=== PATIENT | male | born 1970 | race American Indian/Alaskan Native ===

== ENCOUNTER 2020-01-04 20:35 | Inpatient (IN) | payer OTHER ==
[2020-01-04] MEDS ORDERED: NORepinephrine/NS 4 MG-250 ML 4 MG/250 ML BAG IV ONE (20:54)
[2020-01-04] MEDS: NORepinephrine/NS 4 MG-250 ML 4 MG/250 ML BAG IV SCH (21:00)
--- NOTE | 2020-01-04 21:36 | XRay Report ---
CHEST 1 VIEW INDICATION / CLINICAL INFORMATION: MAIN: post intubation; FOUND FACE DOWN AT A GAS STATION. COMPARISON: None available. FINDINGS: SUPPORT DEVICES: The endotracheal tube is located 5 cm above the niraj. HEART / MEDIASTINUM: No significant abnormality. LUNGS / PLEURA: No significant pulmonary or pleural abnormality. No pneumothorax. ADDITIONAL FINDINGS: No significant additional findings. IMPRESSION: 1. No acute findings. Signer Name: Dago Gayle MD Signed: 01/04/2020 9:31 PM Workstation Name: [id number]
[2020-01-04 21:42] LABS: Basophils % (Auto) 0.3 % (0.0-1.8); Eosinophils % (Auto) 0.3 % (0.0-4.3); Hematocrit 35.7 % (35.5-45.6); Hemoglobin 11.5 gm/dl (11.8-15.2); Lymphocytes # (Auto) 2.9 K/mm3 (1.2-5.4); Lymphocytes % (Auto) 24.1 % (13.4-35.0); Mean Corpuscular HGB Conc 32 % (32-34); Mean Corpuscular Volume 93 fl (84-94); Monocytes # (Auto) 0.7 K/mm3 (0.0-0.8); Monocytes % (Auto) 5.5 % (0.0-7.3); Platelet Count 130 K/mm3 (140-440); Red Blood Count 3.84 M/mm3 (3.65-5.03); Red Cell Distribution Width 15.2 % (13.2-15.2)
[2020-01-04 21:49] LABS: Bacteria,Urine 4+ /HPF (Negative); Bilirubin,Urine NEG (Negative); Blood,Urine NEG (Negative); Color,Urine Yellow (Yellow); Mucus,Urine 1+ /HPF; Sperm,Urine 3+ /HPF (NP); Urobilinogen,Urine < 2.0 mg/dL (<2.0)
[2020-01-04 21:53] LABS: INR 1.45 (0.87-1.13)
[2020-01-04 21:55] LABS: Benzodiazepines Screen,Urine PRESUMPTIVE NEGATIVE; Cannabinoid Screen,Urine PRESUMPTIVE NEGATIVE; Methadone Screen,Urine PRESUMPTIVE NEGATIVE; Opiate Screen,Urine PRESUMPTIVE NEGATIVE
[2020-01-04 22:03] LABS: ABG Base Excess -13.5 mmol/L (-2.0-3.0); ABG HCO3 14.6 mmol/L (20.0-26.0); ABG Methemoglobin 0.6 % (0.0-1.5); ABG Oxygen Saturation 99.6 % (95.0-99.0); ABG PCO2 41.9 mm Hg
[2020-01-04 22:07] LABS: Alanine Aminotransferase 196 units/L (7-56); Albumin 3.7 g/dL (3.9-5); BUN/Creatinine Ratio 9; Blood Urea Nitrogen 18 mg/dL (9-20); Calcium 7.4 mg/dL (8.4-10.2); Hemolysis Index 17
[2020-01-04 22:09] LABS: ABG PH 7.159 pH Units (7.350-7.450); ABG PO2 404.4 mm Hg (80.0-90.0)
[2020-01-04] MEDS ORDERED: SODIUM BICARB 8.4% 50 MEQ/50 ML SYRINGE IV ONE ×2 (22:12→22:14)
[2020-01-04 22:15] LABS: Amphetamine Screen,Urine PRESUMPTIVE POSITIVE; Cocaine Screen,Urine PRESUMPTIVE POSITIVE
--- NOTE | 2020-01-04 22:27 | Emergency Department Report ---
<LASHAWN MCGOVERN - Last Filed: 01/05/20 06:25> ED General Adult HPI - General Chief complaint: Cardiac Arrest/CPR Stated complaint: CARDIAC ARREST Time Seen by Provider: 01/04/20 21:03 - Related Data Home Medications Medication Instructions Recorded Confirmed Last Taken Unobtainable 01/05/20 01/05/20 Unknown Allergies Allergy/AdvReac Type Severity Reaction Status Date / Time No Known Allergies Allergy Verified 01/04/20 21:59 ED Past Medical Hx - Medications Home Medications: Home Medications Medication Instructions Recorded Confirmed Last Taken Type Unobtainable 01/05/20 01/05/20 Unknown History ED Medical Decision Making - Lab Data Result diagrams: 01/05/20 05:29 01/05/20 05:29 - Medical Decision Making Attempt to transfer patient to neurosurgery but he was declined by [facility], states ct findings and clinical findings are consistent with a moribound patient and that neurosurgery would not operate on patient, all neurosurgery procedures would be futile. ED Disposition Clinical Impression: Subarachnoid hemorrhage, History of cardiac arrest Disposition: OP ADMIT IP TO THIS HOSP Condition: Stable <ROSY JARAMILLO - Last Filed: 01/05/20 21:01> ED General Adult HPI - General Source: EMS Mode of arrival: Stretcher Limitations: Altered Mental Status - History of Present Illness Initial comments: Patient is a 49-year-old gentleman who was found collapsed in a gas station parking lot. Patient was checked by a nurse who was nearby who did not feel a pulse. Paramedics arrived patient was in asystole. Patient was intubated and CPR was initiated. Patient given several rounds of epinephrine. Just before the patient was arrival he did regain spontaneous circulation. No other informa tion is known regarding this patient. ED Review of Systems ROS: Stated complaint: CARDIAC ARREST Other details as noted in HPI Comment: All other systems reviewed and negative ED Past Medical Hx - Past Medical History Additional medical history: unknown - Surgical History Additional Surgical History: unknown - Social History Smoking Status: Unknown if ever smoked ED Physical Exam - General Limitations: Altered Mental Status General appearance: obtunded - Head Head exam: Present: normocephalic. Absent: atraumatic (With 2 large abrasions to the right side of his face) - Eye Eye exam: Present: normal appearance, PERRL - ENT ENT exam: Present: normal orophraynx, mucous membranes moist - Neck Neck exam: Present: normal inspection - Respiratory Respiratory exam: Present: normal lung sounds bilaterally. Absent: respiratory distress, wheezes, rales, rhonchi - Cardiovascular Cardiovascular Exam: Present: regular rate, normal rhythm, tachycardia. Absent: systolic murmur, diastolic murmur, rubs, gallop - GI/Abdominal GI/Abdominal exam: Present: soft, normal bowel sounds. Absent: distended, tenderness, guarding, rebound - Rectal Rectal exam: Present: deferred - Extremities Exam Extremities exam: Present: normal inspection - Back Exam Back exam: Present: normal inspection - Neurological Exam Neurological exam: Present: other (Intubated) - Skin Skin exam: Present: warm, dry, intact, normal color. Absent: rash ED Course Vital Signs 01/04/20 01/04/20 01/04/20 21:30 21:54 23:45 Temperature Pulse Rate 74 138 H Respiratory Rate Blood Pressure 149/73 O2 Sat by Pulse 97 100 97 Oximetry 01/05/20 01/05/20 01/05/20 03:27 03:30 03:45 Temperature Pulse Rate 128 H 128 H 126 H Respiratory 22 22 22 Rate Blood Pressure 145/109 145/109 142/108 O2 Sat by Pulse 99 99 99 Oximetry 01/05/20 01/05/20 01/05/20 03:50 04:00 04:15 Temperature Pulse Rate 127 H 125 H 124 H Respiratory 22 22 Rate Blood Pressure 150/105 142/100 138/95 O2 Sat by Pulse 99 99 99 Oximetry 01/05/20 01/05/20 01/05/20 04:30 04:45 05:00 Temperature Pulse Rate 124 H 125 H 125 H Respiratory 22 22 22 Rate Blood Pressure 130/99 147/104 151/104 O2 Sat by Pulse 99 99 99 Oximetry 01/05/20 01/05/20 01/05/20 05:15 05:30 05:46 Temperature Pulse Rate 122 H 122 H 119 H Respiratory 22 22 17 Rate Blood Pressure 131/100 119/95 97/69 O2 Sat by Pulse 99 99 100 Oximetry 01/05/20 01/05/20 01/05/20 06:00 06:15 06:30 Temperature Pulse Rate 120 H 115 H 113 H Respiratory 22 22 22 Rate Blood Pressure 148/109 107/78 104/72 O2 Sat by Pulse 99 99 99 Oximetry 01/05/20 01/05/20 01/05/20 06:45 07:00 07:27 Temperature Pulse Rate 113 H 112 H 105 H Respiratory 22 22 22 Rate Blood Pressure 103/65 94/60 104/72 O2 Sat by Pulse 99 99 100 Oximetry 01/05/20 01/05/20 01/05/20 07:30 07:45 08:00 Temperature Pulse Rate 104 H 103 H 102 H Respiratory 22 22 22 Rate Blood Pressure 135/99 151/107 148/103 O2 Sat by Pulse 100 100 100 Oximetry 01/05/20 01/05/20 01/05/20 08:15 08:30 08:45 Temperature Pulse Rate 101 H 101 H 102 H Respiratory 22 22 22 Rate Blood Pressure 155/113 153/103 157/116 O2 Sat by Pulse 100 100 100 Oximetry 01/05/20 01/05/20 01/05/20 08:58 09:00 09:15 Temperature Pulse Rate 101 H 102 H 102 H Respiratory 18 18 Rate Blood Pressure 158/116 158/116 152/118 O2 Sat by Pulse 99 100 99 Oximetry 01/05/20 01/05/20 01/05/20 09:30 09:45 10:00 Temperature Pulse Rate 103 H 105 H 105 H Respiratory 18 18 18 Rate Blood Pressure 161/118 175/122 172/126 O2 Sat by Pulse 99 99 98 Oximetry 01/05/20 01/05/20 01/05/20 10:15 10:30 10:46 Temperature 98.4 F Pulse Rate 108 H 108 H 104 H Respiratory 18 18 18 Rate Blood Pressure 151/112 141/102 145/99 O2 Sat by Pulse 98 98 98 Oximetry 01/05/20 11:00 Temperature Pulse Rate 103 H Respiratory 18 Rate Blood Pressure 140/97 O2 Sat by Pulse 98 Oximetry - Reevaluation(s) Reevaluation #1: 01/04/20 22:41 Patient did have one episode where he lost his pulse and had to be placed on a Levophed drip. Patient regained pulse immediately after given epinephrine and is maintained good pulse since. Patient is tachycardic and hypertensive. He is positive for amphetamines and cocaine. Patient because of the collapse and head trauma will have a head CT will do CT of his cervical spine. D-dimer was elevated and a CT Kerry of the chest will be done and abdomen pelvis with contrast to be done as well to rule out dissection and AAA - Central Line Placement Right Femoral Consent Obtained: emergent situation Time Out Performed: Yes Patient Placed on Monitor/Pulse Ox: Yes Prep: mask, gown, gloves Central Line Prep: Chlorhexidine scrub, sterile drapes applied Ultrasound Used for Placement: No Central Line Lumen Inserted: triple Central Line Position: good blood return, all ports aspirated, flus, sutured in place with 2-0 Dressing Applied: Tegaderm Patient Tolerated Procedure: well ED Medical Decision Making - Lab Data Result diagrams: 01/05/20 05:29 01/05/20 05:29 Lab Results 01/04/20 01/04/20 01/04/20 Range/Units 21:25 21:25 21:25 WBC 12.1 H (4.5-11.0) K/mm3 RBC 3.84 (3.65-5.03) M/mm3 Hgb 11.5 L (11.8-15.2) gm/dl Hct 35.7 (35.5-45.6) % MCV 93 (84-94) fl MCH 30 (28-32) pg MCHC 32 (32-34) % RDW 15.2 (13.2-15.2) % Plt Count 130 L (140-440) K/mm3 Lymph % (Auto) 24.1 (13.4-35.0) % [place] % (Auto) 5.5 (0.0-7.3) % Eos % (Auto) 0.3 (0.0-4.3) % Baso % (Auto) 0.3 (0.0-1.8) % Lymph # 2.9 (1.2-5.4) K/mm3 [place] # 0.7 (0.0-0.8) K/mm3 Eos # 0.0 (0.0-0.4) K/mm3 Baso # 0.0 (0.0-0.1) K/mm3 Seg Neutrophils % 69.8 (40.0-70.0) % Seg Neutrophils # 8.4 H (1.8-7.7) K/mm3 PT 17.9 H (12.2-14.9) Sec. INR 1.45 H (0.87-1.13) APTT 36.0 (24.2-36.6) Sec. D-Dimer > 45394 H (0-234) ng/mlDDU ABG pH (7.350-7.450) pH Units ABG pCO2 mm Hg ABG pO2 (80.0-90.0) mm Hg ABG HCO3 (20.0-26.0) mmol/L ABG O2 Saturation (95.0-99.0) % ABG O2 Content (0.0-44) ABG Base Excess (-2.0-3.0) mmol/L ABG Hemoglobin (14.0-18.0) gm/dl ABG Carboxyhemoglobin (0.0-5.0) % ABG Methemoglobin (0.0-1.5) % Oxyhemoglobin (95.0-99.0) % FiO2 % Sodium 138 (137-145) mmol/L Potassium 3.7 (3.6-5.0) mmol/L Chloride 94.7 L (98-107) mmol/L Carbon Dioxide 13 L (22-30) mmol/L Anion Gap 34 mmol/L BUN 18 (9-20) mg/dL Creatinine 1.9 H (0.8-1.5) mg/dL Estimated GFR 46 ml/min BUN/Creatinine Ratio 9 % Glucose 281 H (75-100) mg/dL Calcium 7.4 L (8.4-10.2) mg/dL Total Bilirubin < 0.20 (0.1-1.2) mg/dL AST 240 H (5-40) units/L ALT 196 H (7-56) units/L Alkaline Phosphatase 44 (35-129) units/L Troponin T < 0.010 (0.00-0.029) ng/mL Total Protein 6.0 L (6.3-8.2) g/dL Albumin 3.7 L (3.9-5) g/dL Albumin/Globulin Ratio 1.6 % Urine Color (Yellow) Urine Turbidity (Clear) Urine pH (5.0-7.0) Ur Specific [place] (1.003-1.030) Urine Protein (Negative) mg/dL Urine Glucose (UA) (Negative) mg/dL Urine Ketones (Negative) mg/dL Urine Blood (Negative) Urine Nitrite (Negative) Urine Bilirubin (Negative) Urine Urobilinogen (<2.0) mg/dL Ur Leukocyte Esterase (Negative) Urine WBC (Auto) (0.0-6.0) /HPF Urine RBC (Auto) (0.0-6.0) /HPF Urine Bacteria (Auto) (Negative) /HPF Urine WBC Clumps /HPF Urine Mucus /HPF Urine Yeast (Budding) /HPF Urine Sperm (MECHANICAL LABORATORY TECHNICIAN) /HPF Urine Opiates Screen Urine Methadone Screen Ur Barbiturates Screen Ur Phencyclidine Scrn Ur Amphetamines Screen U Benzodiazepines Scrn Urine Cocaine Screen U Marijuana (THC) Screen Drugs of Abuse Note Plasma/Serum Alcohol (0-0.07) % 01/04/20 01/04/20 01/04/20 Range/Units 21:25 21:41 Unknown WBC (4.5-11.0) K/mm3 RBC (3.65-5.03) M/mm3 Hgb (11.8-15.2) gm/dl Hct (35.5-45.6) % MCV (84-94) fl MCH (28-32) pg MCHC (32-34) % RDW (13.2-15.2) % Plt Count (140-440) K/mm3 Lymph % (Auto) (13.4-35.0) % [place] % (Auto) (0.0-7.3) % Eos % (Auto) (0.0-4.3) % Baso % (Auto) (0.0-1.8) % Lymph # (1.2-5.4) K/mm3 [place] # (0.0-0.8) K/mm3 Eos # (0.0-0.4) K/mm3 Baso # (0.0-0.1) K/mm3 Seg Neutrophils % (40.0-70.0) % Seg Neutrophils # (1.8-7.7) K/mm3 PT (12.2-14.9) Sec. INR (0.87-1.13) APTT (24.2-36.6) Sec. D-Dimer (0-234) ng/mlDDU ABG pH 7.159 L* (7.350-7.450) pH Units ABG pCO2 41.9 mm Hg ABG pO2 404.4 H (80.0-90.0) mm Hg ABG HCO3 14.6 L (20.0-26.0) mmol/L ABG O2 Saturation 99.6 H (95.0-99.0) % ABG O2 Content 17.7 (0.0-44) ABG Base Excess -13.5 L (-2.0-3.0) mmol/L ABG Hemoglobin 12.2 L (14.0-18.0) gm/dl ABG Carboxyhemoglobin 2.0 (0.0-5.0) % ABG Methemoglobin 0.6 (0.0-1.5) % Oxyhemoglobin 97.0 (95.0-99.0) % FiO2 100 % Sodium (137-145) mmol/L Potassium (3.6-5.0) mmol/L Chloride (98-107) mmol/L Carbon Dioxide (22-30) mmol/L Anion Gap mmol/L BUN (9-20) mg/dL Creatinine (0.8-1.5) mg/dL Estimated GFR ml/min BUN/Creatinine Ratio % Glucose (75-100) mg/dL Calcium (8.4-10.2) mg/dL Total Bilirubin (0.1-1.2) mg/dL AST (5-40) units/L ALT (7-56) units/L Alkaline Phosphatase (35-129) units/L Troponin T (0.00-0.029) ng/mL Total Protein (6.3-8.2) g/dL Albumin (3.9-5) g/dL Albumin/Globulin Ratio % Urine Color Yellow (Yellow) Urine Turbidity Cloudy (Clear) Urine pH 6.0 (5.0-7.0) Ur Specific [place] 1.019 (1.003-1.030) Urine Protein 100 mg/dl (Negative) mg/dL Urine Glucose (UA) Neg (Negative) mg/dL Urine Ketones Neg (Negative) mg/dL Urine Blood Neg (Negative) Urine Nitrite Neg (Negative) Urine Bilirubin Neg (Negative) Urine Urobilinogen < 2.0 (<2.0) mg/dL Ur Leukocyte Esterase Neg (Negative) Urine WBC (Auto) 18.0 H (0.0-6.0) /HPF Urine RBC (Auto) 24.0 (0.0-6.0) /HPF Urine Bacteria (Auto) 4+ (Negative) /HPF Urine WBC Clumps 2+ /HPF Urine Mucus 1+ /HPF Urine Yeast (Budding) 2+ /HPF Urine Sperm 3+ (MECHANICAL LABORATORY TECHNICIAN) /HPF Urine Opiates Screen Urine Methadone Screen Ur Barbiturates Screen Ur Phencyclidine Scrn Ur Amphetamines Screen U Benzodiazepines Scrn Urine Cocaine Screen U Marijuana (THC) Screen Drugs of Abuse Note Plasma/Serum Alcohol 0.12 H (0-0.07) % 01/04/20 Range/Units Unknown WBC (4.5-11.0) K/mm3 RBC (3.65-5.03) M/mm3 Hgb (11.8-15.2) gm/dl Hct (35.5-45.6) % MCV (84-94) fl MCH (28-32) pg MCHC (32-34) % RDW (13.2-15.2) % Plt Count (140-440) K/mm3 Lymph % (Auto) (13.4-35.0) % [place] % (Auto) (0.0-7.3) % Eos % (Auto) (0.0-4.3) % Baso % (Auto) (0.0-1.8) % Lymph # (1.2-5.4) K/mm3 [place] # (0.0-0.8) K/mm3 Eos # (0.0-0.4) K/mm3 Baso # (0.0-0.1) K/mm3 Seg Neutrophils % (40.0-70.0) % Seg Neutrophils # (1.8-7.7) K/mm3 PT (12.2-14.9) Sec. INR (0.87-1.13) APTT (24.2-36.6) Sec. D-Dimer (0-234) ng/mlDDU ABG pH (7.350-7.450) pH Units ABG pCO2 mm Hg ABG pO2 (80.0-90.0) mm Hg ABG HCO3 (20.0-26.0) mmol/L ABG O2 Saturation (95.0-99.0) % ABG O2 Content (0.0-44) ABG Base Excess (-2.0-3.0) mmol/L ABG Hemoglobin (14.0-18.0) gm/dl ABG Carboxyhemoglobin (0.0-5.0) % ABG Methemoglobin (0.0-1.5) % Oxyhemoglobin (95.0-99.0) % FiO2 % Sodium (137-145) mmol/L Potassium (3.6-5.0) mmol/L Chloride (98-107) mmol/L Carbon Dioxide (22-30) mmol/L Anion Gap mmol/L BUN (9-20) mg/dL Creatinine (0.8-1.5) mg/dL Estimated GFR ml/min BUN/Creatinine Ratio % Glucose (75-100) mg/dL Calcium (8.4-10.2) mg/dL Total Bilirubin (0.1-1.2) mg/dL AST (5-40) units/L ALT (7-56) units/L Alkaline Phosphatase (35-129) units/L Troponin T (0.00-0.029) ng/mL Total Protein (6.3-8.2) g/dL Albumin (3.9-5) g/dL Albumin/Globulin Ratio % Urine Color (Yellow) Urine Turbidity (Clear) Urine pH (5.0-7.0) Ur Specific [place] (1.003-1.030) Urine Protein (Negative) mg/dL Urine Glucose (UA) (Negative) mg/dL Urine Ketones (Negative) mg/dL Urine Blood (Negative) Urine Nitrite (Negative) Urine Bilirubin (Negative) Urine Urobilinogen (<2.0) mg/dL Ur Leukocyte Esterase (Negative) Urine WBC (Auto) (0.0-6.0) /HPF Urine RBC (Auto) (0.0-6.0) /HPF Urine Bacteria (Auto) (Negative) /HPF Urine WBC Clumps /HPF Urine Mucus /HPF Urine Yeast (Budding) /HPF Urine Sperm (MECHANICAL LABORATORY TECHNICIAN) /HPF Urine Opiates Screen Presumptive negative Urine Methadone Screen Presumptive negative Ur Barbiturates Screen Presumptive negative Ur Phencyclidine Scrn Presumptive negative Ur Amphetamines Screen Presumptive positive U Benzodiazepines Scrn Presumptive negative Urine Cocaine Screen Presumptive positive U Marijuana (THC) Screen Presumptive negative Drugs of Abuse Note Disclamer Plasma/Serum Alcohol (0-0.07) % - Radiology Data CT OF THE ABDOMEN AND PELVIS WITH INTRAVENOUS CONTRAST INDICATION / CLINICAL INFORMATION: Post cardiac arrest. Altered mental status. TECHNIQUE: The patient received 100 cc Omnipaque [address] scans at this location are performed using CT dose reduction for ALARA by means of automated exposure control. COMPARISON: None available. FINDINGS: ABDOMEN: There is mild diffuse periportal edema. There is moderate diffuse gallbladder wall edema. Minimal ascites is noted. There is mild fluid in both perinephric spaces. There is increased fluid throughout the colon and in the distal small bowel without wall thickening, obstruction or free air. There are simple cysts in both renal sinuses. There is a small simple left renal cortical cyst. The bile ducts, pancreas, adrenal glands and spleen are normal. PELVIS: There is a Bundy catheter in a collapsed urinary bladder. There is a small amount of pelvic ascites. No acute osseous abnormality is seen. IMPRESSION: 1. Increased fluid throughout the colon without bowel wall thickening may be related to a low-grade colitis/enterocolitis. Other causes of diarrhea could have this appearance. 2. Periportal edema, gallbladder wall edema, mild perinephric fluid and mild ascites may be related to fluid resuscitation. Signer Name: Petey Cassidy MD Signed: 01/05/2020 1:29 AM Workstation Name: [facility] [place] [id number] Cat Scan Report Signed Patient: ADY SPENCER JR MR#: [id number] : 1970 Acct:[id number] Age/Sex: 49 / M ADM Date: 01/04/20 Loc: ED Attending Dr: Ordering Physician: ROSY JARAMILLO MD Date of Service: 01/04/20 Procedure(s): CT cervical spine wo con Accession Number(s): [id number] cc: ROSY JARAMILLO MD CT CERVICAL SPINE WO CON INDICATION / CLINICAL INFORMATION: Fall with neck injury. TECHNIQUE: All CT scans at this location are performed using CT dose reduction for ALARA by means of automated exposure control. COMPARISON: None available. FINDINGS: The prevertebral soft tissues are normal. There is mild spondylosis, most prominent at C6-7. I see no evidence of fracture or subluxation. I do not identify a focal disc herniation or epidural hematoma. The lung apices are clear. IMPRESSION: No acute abnormality. Signer Name: Petey Cassidy MD Signed: 01/05/2020 1:21 AM Workstation Name: [employer] Transcribed By: RT Dictated By: Petey Cassidy MD Electronically Authenticated By: Petey Cassidy MD Signed Date/Time: 01/05/[address] [address] Cat Scan Report Signed Patient: ADY SPENCER JR MR#: [id number] : 1970 Acct:[id number] Age/Sex: 49 / M ADM Date: 01/04/20 Loc: ED Attending Dr: Ordering Physician: ROSY JARAMILLO MD Date of Service: 01/04/20 Procedure(s): CT head/brain wo con Accession Number(s): [id number] cc: ROSY JARAMILLO MD CT HEAD/BRAIN WO CON INDICATION / CLINICAL INFORMATION: Head injury. TECHNIQUE: All CT scans at this location are performed using CT dose reduction for ALARA by means of automated exposure control. COMPARISON: None available. FINDINGS: There is diffuse increased density throughout the subarachnoid space. There is generalized low density throughout the cerebrum and cerebellum with poor henley-white differentiation. No sulci are seen. The ventricles are small. There is soft tissue swelling in the right periorbital region. There is mucosal thickening involving the right maxillary sinus. I do not identify a fracture. IMPRESSION: Diffuse subarachnoid hemorrhage and evidence of diffuse cerebral edema. CRITICAL RESULT: Time of Discovery (REFURBISH TECHNICIAN/CDT): 11:58 PM Time of Communication (REFURBISH TECHNICIAN/CDT): 11:58 PM Licensed Practitioner Receiving Report: Dr. Thomason. Read Back Performed: Not applicable. Signer Name: Petey Cassidy MD Signed: 01/05/2020 1:02 AM Workstation Name: [id number] Transcribed By: RT Dictated By: Petey Cassidy MD Electronically Authenticated By: Petey Cassidy MD Signed Date/Time: 01/05/[address] [address] Cat Scan Report Signed Patient: ADY SPENCER JR MR#: [id number] : 1970 Acct:[id number] Age/Sex: 49 / M ADM Date: 01/04/20 Loc: ED Attending Dr: Ordering Physician: ROSY JARAMILLO MD Date of Service: 01/04/20 Procedure(s): CT angio chest Accession Number(s): [id number] cc: ROSY JARAMILLO MD CT ANGIOGRAPHY OF THE CHEST WITH INTRAVENOUS CONTRAST AND MULTIPLANAR MIP RECONSTRUCTIONS INDICATION / CLINICAL INFORMATION: Elevated d-dimer; post cardiac arrest. TECHNIQUE: Axial CT images were obtained after injection of 100 cc Omnipaque 350 IV contrast using CTA protocol. 3 plane MIP / 3D reconstructions were produced. All CT scans at this location are performed using CT dose reduction for ALARA by means of automated exposure control. COMPARISON: None available. FINDINGS: There is good opacification of the pulmonary arterial system bilaterally without intraluminal filling defect to suggest acute PTE. The thoracic aorta is normal in caliber without dissection. The visualized coronary vessels are unremarkable. There is mild to moderate dependent atelectasis in both lower lobes. The lungs are otherwise clear. There is no evidence of adenopathy or effusion. The visualized upper abdomen is unremarkable. No acute osseous abnormality is seen. IMPRESSION: 1. No evidence of acute PTE. 2. Mild to moderate bibasilar dependent atelectasis. Signer Name: Petey Cassidy MD Signed: 01/05/2020 1:25 AM Workstation Name: [id number] Critical care attestation.: If time is entered above; I have spent that time in minutes in the direct care of this critically ill patient, excluding procedure time. ED Disposition Is pt being admited?: Yes Does the pt Need Aspirin: No
[2020-01-04] MEDS ORDERED: fentaNYL DRIP Premix 2,000 MCG/100 ML BAG IV ONE (23:20)
[2020-01-04] MEDS: fentaNYL DRIP Premix 2,000 MCG/100 ML BAG IV SCH (23:27)
[2020-01-04] MEDS: fentaNYL 100 MCG/2 ML INJ IV PRN ×2 (23:29→23:43)
--- NOTE | 2020-01-05 01:06 | Cat Scan Report ---
CT HEAD/BRAIN WO CON INDICATION / CLINICAL INFORMATION: Head injury. TECHNIQUE: All CT scans at this location are performed using CT dose reduction for ALARA by means of automated e xposure control. COMPARISON: None available. FINDINGS: There is diffuse increased density throughout the subarachnoid space. There is generalized low densit y throughout the cerebrum and cerebellum with poor henley-white differentiation. No sulci are seen. The ventricles are small. There is soft tissue swelling in the right periorbital region. There is mucosal thickening involving the right maxillary sinus. I do not identify a fracture. IMPRESSION: Diffuse subarachnoid hemorrhage and evidence of diffuse cerebral edema. CRITICAL RESULT: Time of Discovery (ACADEMIC COUNSELOR/CDT): 11:58 PM Time of Communication (ACADEMIC COUNSELOR/CDT): 11:58 PM Licensed Practitioner Receiving Report: Dr. Thomason. Read Back Performed: Not applicable. Signer Name: Petey Cassidy MD Signed: 01/05/2020 1:02 AM Workstation Name: [id number]
--- NOTE | 2020-01-05 01:26 | Cat Scan Report ---
CT CERVICAL SPINE WO CON INDICATION / CLINICAL INFORMATION: Fall with neck injury. TECHNIQUE: All CT scans at this location are performed using CT dose reduction for ALARA by means of automated e xposure control. COMPARISON: None available. FINDINGS: The prevertebral soft tissues are normal. There is mild spondylosis, most prominent at C6-7. I see no evidence of fracture or subluxation. I do not identify a focal disc herniation or epidural hematoma. The lung apices are clear. IMPRESSION: No acute abnormality. Signer Name: Petey Cassidy MD Signed: 01/05/2020 1:21 AM Workstation Name: [id number]
--- NOTE | 2020-01-05 01:29 | Cat Scan Report ---
CT ANGIOGRAPHY OF THE CHEST WITH INTRAVENOUS CONTRAST AND MULTIPLANAR MIP RECONSTRUCTIONS INDICATION / CLINICAL INFORMATION: Elevated d-dimer; post cardiac arrest. TECHNIQUE: Axial CT images were obtained after injection of 100 cc Omnipaque 350 IV contrast using CTA protocol. 3 plane MIP / 3D reconstructions were produced. All CT scans at this location are performed using CT dose reduction for ALARA by means of automated exposure control. COMPARISON: None available. FINDINGS: There is good opacification of the pulmonary arterial system bilaterally without intraluminal filling defect to suggest acute PTE. The thoracic aorta is normal in caliber without dissection. The visuali zed coronary vessels are unremarkable. There is mild to moderate dependent atelectasis in both lower lobes. The lungs are otherwise clear. T here is no evidence of adenopathy or effusion. The visualized upper abdomen is unremarkable. No acute osseous abnormality is seen. IMPRESSION: 1. No evidence of acute PTE. 2. Mild to moderate bibasilar dependent atelectasis. Signer Name: Petey Cassidy MD Signed: 01/05/2020 1:25 AM Workstation Name: [id number]
--- NOTE | 2020-01-05 01:34 | Cat Scan Report ---
CT OF THE ABDOMEN AND PELVIS WITH INTRAVENOUS CONTRAST INDICATION / CLINICAL INFORMATION: Post cardiac arrest. Altered mental status. TECHNIQUE: The patient received 100 cc Omnipaque [address] scans at this location are performed using CT dose reduction for ALARA by means of automated exposure control. COMPARISON: None available. FINDINGS: ABDOMEN: There is mild diffuse periportal edema. There is moderate diffuse gallbladder wall edema. Mi nimal ascites is noted. There is mild fluid in both perinephric spaces. There is increased fluid thro ughout the colon and in the distal small bowel without wall thickening, obstruction or free air. There are simple cysts in both renal sinuses. There is a small simple left renal cortical cyst. The b ile ducts, pancreas, adrenal glands and spleen are normal. PELVIS: There is a Bundy catheter in a collapsed urinary bladder. There is a small amount of pelvic a scites. No acute osseous abnormality is seen. IMPRESSION: 1. Increased fluid throughout the colon without bowel wall thickening may be related to a low-grade c olitis/enterocolitis. Other causes of diarrhea could have this appearance. 2. Periportal edema, gallbladder wall edema, mild perinephric fluid and mild ascites may be related t o fluid resuscitation. Signer Name: Petey Cassidy MD Signed: 01/05/2020 1:29 AM Workstation Name: [id number]
[2020-01-05 04:09] LABS: ABG Base Excess -1.3 mmol/L (-2.0-3.0); ABG HCO3 23.2 mmol/L (20.0-26.0); ABG Methemoglobin 0.7 % (0.0-1.5); ABG Oxygen Saturation 99.3 % (95.0-99.0); ABG PCO2 38.4 mm Hg; ABG PH 7.398 pH Units (7.350-7.450); ABG PO2 218.9 mm Hg (80.0-90.0)
--- NOTE | 2020-01-05 04:44 | History and Physical Report ---
History of Present Illness History of present illness: 49-year-old man with no known medical problem was found unresponsive at a gas station. He had trauma to the right side of the face. EMS started CPR, intubated the patient, just before they arrived he regained a pulse. Patient had no gag, spontaneous movement upon arrival. CT head shows diffuse subarachnoid hemorrhage with cerebral edema. His labs showed acute renal failure, urine positive for cocaine and amphetamines. He was tachycardic and hypertensive and was started on a fentanyl drip. Calls were made to [facility], patient was not accepted, no acute i intervention to be done for him. Review of system is unobtainable PAST MEDICAL HISTORY: Unknown PAST SURGICAL HISTORY: Unknown SOCIAL HISTORY: Unknown alcohol, tobacco, positive cocaine, phentermine FAMILY HISTORY: Unknown Medications and Allergies Allergies Allergy/AdvReac Type Severity Reaction Status Date / Time No Known Allergies Allergy Verified 01/04/20 21:59 Home Medications Medication Instructions Recorded Confirmed Last Taken Type Unobtainable 01/05/20 01/05/20 Unknown History Active Meds: Active Medications Fentanyl (Sublimaze) 50 mcg IV Q10MIN PRN PRN Reason: ANALGESIA Last Admin: 01/04/20 23:43 Dose: 50 mcg Documented by: Norepinephrine (Levophed Drip 4 Mg/Ns 250 Ml) 4 mg in 250 mls @ 18.75 mls/hr IV TITR ROWDY; Protocol Last Admin: 01/04/20 21:00 Dose: 5 mcg/min, 18.75 mls/hr Documented by: Fentanyl Citrate (Fentanyl Drip Premix) 2,000 mcg in 100 mls @ 4.035 mls/hr IV TITR ROWDY; Protocol Last Admin: 01/04/20 23:27 Dose: 1 mcg/kg/hr, 4.035 mls/hr Documented by: Exam - Physical Exam Narrative exam: Gen. appearance: Patient lying in bed, no apparent distress, intubated HEENT: Normocephalic, bruise on right side of face, pupils equally round and no reactivity to light, fixed, unable to do extraocular movement and no sclericterus,. No JVD or thyromegaly or nodule,neck supple, no carotid bruit ,mucous membranes moist, unable to examine oral cavity Heart: S1, S2, regular rate and rhythm Lungs: Crackles bilaterally, breathing comfortable Abdomen: Positive bowel sounds, soft, nondistended, no organomegaly Extremity: no edema, cyanosis, clubbing Skin: No rash, nodules, warm, dry Neuro: Sedated - Constitutional Vitals: Temp Pulse Resp BP Pulse Ox 127 H 150/105 99 01/05/20 03:50 01/05/20 03:50 01/05/20 03:50 Results - Labs CBC & Chem 7: 01/05/20 05:29 01/05/20 05:29 Labs: Abnormal lab results 01/04/20 01/04/20 01/04/20 Range/Units 21:25 21:25 21:25 WBC 12.1 H (4.5-11.0) K/mm3 Hgb 11.5 L (11.8-15.2) gm/dl Plt Count 130 L (140-440) K/mm3 Seg Neutrophils # 8.4 H (1.8-7.7) K/mm3 PT 17.9 H (12.2-14.9) Sec. INR 1.45 H (0.87-1.13) D-Dimer > 20004 H (0-234) ng/mlDDU ABG pH (7.350-7.450) pH Units ABG pO2 (80.0-90.0) mm Hg ABG HCO3 (20.0-26.0) mmol/L ABG O2 Saturation (95.0-99.0) % ABG Base Excess (-2.0-3.0) mmol/L ABG Hemoglobin (14.0-18.0) gm/dl Chloride 94.7 L (98-107) mmol/L Carbon Dioxide 13 L (22-30) mmol/L Creatinine 1.9 H (0.8-1.5) mg/dL Glucose 281 H (75-100) mg/dL Calcium 7.4 L (8.4-10.2) mg/dL AST 240 H (5-40) units/L ALT 196 H (7-56) units/L Total Protein 6.0 L (6.3-8.2) g/dL Albumin 3.7 L (3.9-5) g/dL Urine WBC (Auto) (0.0-6.0) /HPF Plasma/Serum Alcohol (0-0.07) % 01/04/20 01/04/20 01/04/20 Range/Units 21:25 21:41 Unknown WBC (4.5-11.0) K/mm3 Hgb (11.8-15.2) gm/dl Plt Count (140-440) K/mm3 Seg Neutrophils # (1.8-7.7) K/mm3 PT (12.2-14.9) Sec. INR (0.87-1.13) D-Dimer (0-234) ng/mlDDU ABG pH 7.159 L* (7.350-7.450) pH Units ABG pO2 404.4 H (80.0-90.0) mm Hg ABG HCO3 14.6 L (20.0-26.0) mmol/L ABG O2 Saturation 99.6 H (95.0-99.0) % ABG Base Excess -13.5 L (-2.0-3.0) mmol/L ABG Hemoglobin 12.2 L (14.0-18.0) gm/dl Chloride (98-107) mmol/L Carbon Dioxide (22-30) mmol/L Creatinine (0.8-1.5) mg/dL Glucose (75-100) mg/dL Calcium (8.4-10.2) mg/dL AST (5-40) units/L ALT (7-56) units/L Total Protein (6.3-8.2) g/dL Albumin (3.9-5) g/dL Urine WBC (Auto) 18.0 H (0.0-6.0) /HPF Plasma/Serum Alcohol 0.12 H (0-0.07) % 01/05/20 Range/Units 03:38 WBC (4.5-11.0) K/mm3 Hgb (11.8-15.2) gm/dl Plt Count (140-440) K/mm3 Seg Neutrophils # (1.8-7.7) K/mm3 PT (12.2-14.9) Sec. INR (0.87-1.13) D-Dimer (0-234) ng/mlDDU ABG pH (7.350-7.450) pH Units ABG pO2 218.9 H (80.0-90.0) mm Hg ABG HCO3 (20.0-26.0) mmol/L ABG O2 Saturation 99.3 H (95.0-99.0) % ABG Base Excess (-2.0-3.0) mmol/L ABG Hemoglobin (14.0-18.0) gm/dl Chloride (98-107) mmol/L Carbon Dioxide (22-30) mmol/L Creatinine (0.8-1.5) mg/dL Glucose (75-100) mg/dL Calcium (8.4-10.2) mg/dL AST (5-40) units/L ALT (7-56) units/L Total Protein (6.3-8.2) g/dL Albumin (3.9-5) g/dL Urine WBC (Auto) (0.0-6.0) /HPF Plasma/Serum Alcohol (0-0.07) % - Imaging and Cardiology Chest x-ray: report reviewed CT scan - abdomen: report reviewed CT scan - chest: report reviewed CT Scan - head: report reviewed Assessment and Plan CT C-spine reviewed . Assessment Acute respiratory failure Continue sedation, consult critical care Diffuse subarachnoid hemorrhage with cerebral edema No acute intervention to be offered to the patient Supportive care, consult neurology Hypotensive/UTI Continue Levophed drip, start Zosyn Give a dose of Vanco, obtain cultures check cardiac enzymes, lactic acid Acute renal failure Start IV fluids, monitor kidney function Thrombocytopenia, monitor Substance abuse Prognosis poor DVT prophylaxis
[2020-01-05] MEDS ORDERED: ONDANSETRON 4 MG/2 ML INJ IV PRN (05:09)
[2020-01-05] MEDS ORDERED: ACETAMINOPHEN 325 MG TAB PO PRN (05:09)
[2020-01-05] MEDS ORDERED: ACETAMINOPHEN 650 MG RECT SUPP PR PRN (05:09)
[2020-01-05] MEDS ORDERED: SODIUM CHLORIDE 0.9% 1000 ML 1,000 ML IV ONE (05:13)
[2020-01-05] MEDS ORDERED: SODIUM CHLORIDE 0.9% 1000 ML 1,000 ML IV SCH (05:15)
[2020-01-05] MEDS ORDERED: VANCOMYCIN 500 MG in SODIUM CHLORIDE 0.9% 500 ML 500 ML IV ONE (05:20)
[2020-01-05] MEDS ORDERED: VANCOMYCIN 1,250 MG in SODIUM CHLORIDE 0.9% 250ML 250 ML IV ONE (05:30)
[2020-01-05 06:05] LABS: Basophils % (Auto) 0.1 % (0.0-1.8); Hematocrit 42.7 % (35.5-45.6); Hemoglobin 14.8 gm/dl (11.8-15.2); Lymphocytes # (Auto) 0.7 K/mm3 (1.2-5.4); Lymphocytes % (Auto) 4.2 % (13.4-35.0); Mean Corpuscular HGB Conc 35 % (32-34); Mean Corpuscular Volume 90 fl (84-94); Monocytes # (Auto) 1.2 K/mm3 (0.0-0.8); Monocytes % (Auto) 6.8 % (0.0-7.3); Platelet Count 216 K/mm3 (140-440); Red Blood Count 4.77 M/mm3 (3.65-5.03); Red Cell Distribution Width 15.2 % (13.2-15.2)
[2020-01-05 06:20] LABS: Creatine Kinase MB 20.2 ng/mL (0.0-4.0)
[2020-01-05 06:23] LABS: Calcium 8.3 mg/dL (8.4-10.2)
[2020-01-05 06:43] LABS: Chol/HDL Ratio 1.75 %
[2020-01-05] MEDS: fentaNYL DRIP Premix 2,000 MCG/100 ML BAG IV SCH (07:55)
[2020-01-05] MEDS: PIPERACILLIN/TAZOBACTAM 3.375 3.375 GM/50 ML BAG IV SCH ×3 (08:12→22:35)
[2020-01-05] MEDS ORDERED: NORepinephrine/NS 4 MG-250 ML 4 MG/250 ML BAG IV ONE (10:03)
--- NOTE | 2020-01-05 10:36 | Progress Note ---
Assessment and Plan Assessment and plan: Work-up so far; CTA chest; no evidence of PE mild to moderate bibasilar dependent atelectasis CT abdomen and pelvis; increased fluid throughout the colon without bowel wall thickening may be related to low-grade colitis enterocolitis Periportal edema gallbladder wall edema mild perinephric fluid and mild ascites may be related to fluid resuscitation CT head without contrast; diffuse subarachnoid hemorrhage and evidence of diffuse cerebral edema CT cervical spine; no acute abnormality Chest x-ray; no acute abnormality Assessment and plan: --Acute diffuse subarachnoid hemorrhage with cerebral edema; As per notes ER and admitting physician tried to transfer the patient to neurosurgical services at [facility], no surgical intervention advised, Unable to accept the transfer Neurology, supportive care --Acute metabolic encephalopathy; Secondary to subarachnoid hemorrhage and multiple other medical issues Closely monitor, patient is intubated --Acute hypoxic respiratory failure; Requiring intubation, on ventilatory support Nebulizers, supportive care, pulmonary critical consulted --Outside the hospital cardiac arrest; Refer to EMS note for details --Non-ST elevation NC; Serial cardiac enzymes, echocardiogram for LV function ejection fraction, Cardiology consult, discussed with Dr. Renan Rose --Hypotension ; on Levophed Titrate systolic blood pressures to more than 100/map 65 IV fluids --Acute kidney injury; probably secondary to ATN IV hydration, monitor renal function, consult nephrology if needed --Leukocytosis/urinary tract infection Empiric antibiotics, follow cultures --Lactic acidosis; probably secondary to UTI Closely monitor --Polysubstance abuse; Drug screen positive for cocaine and amphetamines Supportive care, auto club travel counselor the patient when he is stable --DVT prophylaxis; SCDs No pharmacologic anticoagulation due to subarachnoid hemorrhage --Full CODE STATUS Patient is critically ill with multiple serious medical problems, With very poor prognosis. We will discuss patient's condition prognosis and treatment plan with the family when they are available Follow clinically and adjust management as needed Follow specialty sales consultant recommendations Critical care time 40 minutes History Interval history: Patient seen and examined Patient's chart and other records reviewed Orally intubated on ventilatory support Unresponsive Off levo fed Vital signs reviewed Hospitalist Physical - Constitutional Vitals: Temp Pulse Resp BP Pulse Ox 108 H 18 151/112 98 01/05/20 10:15 01/05/20 10:15 01/05/20 10:15 01/05/20 10:15 General appearance: Present: well-nourished, other (Unresponsive, intubated on vent) - EENT Eyes: Absent: scleral icterus (Absent pupillary and corneal reflexes) ENT: other (NG tube in place) - Neck Neck: Present: supple. Absent: enlarged thyroid - Respiratory Respiratory effort: normal Respiratory: bilateral: diminished, negative: rales, rhonchi, wheezing - Cardiovascular Rhythm: regular Heart Sounds: Present: S1 & S2 - Extremities Extremities: no ischemia, No edema - Abdominal General gastrointestinal: soft, non-tender, non-distended, normal bowel sounds - Integumentary Integumentary: Present: clear, warm - Psychiatric Psychiatric: other (Unresponsive) - Neurologic Neurologic: other (Unresponsive, absent pupillary, corneal, gag reflexes) Results - Labs CBC & Chem 7: 01/05/20 05:29 01/05/20 05:29 Labs: Laboratory Last Values WBC 17.9 K/mm3 (4.5-11.0) H 01/05/20 05:29 RBC 4.77 M/mm3 (3.65-5.03) 01/05/20 05:29 Hgb 14.8 gm/dl (11.8-15.2) D 01/05/20 05:29 Hct 42.7 % (35.5-45.6) D 01/05/20 05:29 MCV 90 fl (84-94) 01/05/20 05:29 MCH 31 pg (28-32) 01/05/20 05:29 MCHC 35 % (32-34) H 01/05/20 05:29 RDW 15.2 % (13.2-15.2) 01/05/20 05:29 Plt Count 216 K/mm3 (140-440) 01/05/20 05:29 Lymph % (Auto) 4.2 % (13.4-35.0) L 01/05/20 05:29 Nolan % (Auto) 6.8 % (0.0-7.3) 01/05/20 05:29 Eos % (Auto) 0.0 % (0.0-4.3) 01/05/20 05:29 Baso % (Auto) 0.1 % (0.0-1.8) 01/05/20 05:29 Lymph # 0.7 K/mm3 (1.2-5.4) L 01/05/20 05:29 Nolan # 1.2 K/mm3 (0.0-0.8) H 01/05/20 05:29 Eos # 0.0 K/mm3 (0.0-0.4) 01/05/20 05:29 Baso # 0.0 K/mm3 (0.0-0.1) 01/05/20 05:29 Seg Neutrophils % 88.9 % (40.0-70.0) H 01/05/20 05:29 Seg Neutrophils # 15.9 K/mm3 (1.8-7.7) H 01/05/20 05:29 PT 17.9 Sec. (12.2-14.9) H 01/04/20 21:25 INR 1.45 (0.87-1.13) H 01/04/20 21:25 APTT 36.0 Sec. (24.2-36.6) 01/04/20 21:25 D-Dimer > 77446 ng/mlDDU (0-234) H 01/04/20 21:25 ABG pH 7.398 pH Units (7.350-7.450) 01/05/20 03:38 ABG pCO2 38.4 mm Hg 01/05/20 03:38 ABG pO2 218.9 mm Hg (80.0-90.0) H 01/05/20 03:38 ABG HCO3 23.2 mmol/L (20.0-26.0) 01/05/20 03:38 ABG O2 Saturation 99.3 % (95.0-99.0) H 01/05/20 03:38 ABG O2 Content 21.2 (0.0-44) 01/05/20 03:38 ABG Base Excess -1.3 mmol/L (-2.0-3.0) 01/05/20 03:38 ABG Hemoglobin 15.1 gm/dl (14.0-18.0) 01/05/20 03:38 ABG Carboxyhemoglobin 1.0 % (0.0-5.0) 01/05/20 03:38 ABG Methemoglobin 0.7 % (0.0-1.5) 01/05/20 03:38 Oxyhemoglobin 97.7 % (95.0-99.0) 01/05/20 03:38 FiO2 45 % 03/28/20 03:38 Sodium 140 mmol/L (137-145) 01/05/20 05:29 Potassium 4.7 mmol/L (3.6-5.0) D 01/05/20 05:29 Chloride 98.1 mmol/L (98-107) 01/05/20 05:29 Carbon Dioxide 21 mmol/L (22-30) L D 01/05/20 05:29 Anion Gap 26 mmol/L 01/05/20 05:29 BUN 31 mg/dL (9-20) H 01/05/20 05:29 Creatinine 2.8 mg/dL (0.8-1.5) H 01/05/20 05:29 Estimated GFR 29 ml/min 01/05/20 05:29 BUN/Creatinine Ratio 11 % 01/05/20 05:29 Glucose 134 mg/dL (75-100) H 01/05/20 05:29 Lactic Acid 2.10 mmol/L (0.7-2.0) H* 01/05/20 05:41 Calcium 8.3 mg/dL (8.4-10.2) L 01/05/20 05:29 Total Bilirubin < 0.20 mg/dL (0.1-1.2) 01/04/20 21:25 AST 240 units/L (5-40) H 01/04/20 21:25 ALT 196 units/L (7-56) H 01/04/20 21:25 Alkaline Phosphatase 44 units/L (35-129) 01/04/20 21:25 Total Creatine Kinase 625 units/L (55-170) H 01/05/20 05:41 CK-MB (CK-2) 20.2 ng/mL (0.0-4.0) H 01/05/20 05:41 CK-MB (CK-2) Rel Index 3.2 (0-4) 01/05/20 05:41 Troponin T 2.990 ng/mL (0.00-0.029) H* D 01/05/20 05:41 Total Protein 6.0 g/dL (6.3-8.2) L 01/04/20 21:25 Albumin 3.7 g/dL (3.9-5) L 01/04/20 21:25 Albumin/Globulin Ratio 1.6 % 01/04/20 21:25 Triglycerides 97 mg/dL (2-149) 01/05/20 05:41 Cholesterol 119 mg/dL (50-199) 01/05/20 05:41 LDL Cholesterol Direct 50 mg/dL (50-130) 01/05/20 05:41 HDL Cholesterol 68 mg/dL (40-59) H 01/05/20 05:41 Cholesterol/HDL Ratio 1.75 % 01/05/20 05:41 Urine Color Yellow (Yellow) 01/04/20 Unknown Urine Turbidity Cloudy (Clear) 01/04/20 Unknown Urine pH 6.0 (5.0-7.0) 01/04/20 Unknown Ur Specific Malone 1.019 (1.003-1.030) 01/04/20 Unknown Urine Protein 100 mg/dl mg/dL (Negative) 01/04/20 Unknown Urine Glucose (UA) Neg mg/dL (Negative) 01/04/20 Unknown Urine Ketones Neg mg/dL (Negative) 01/04/20 Unknown Urine Blood Neg (Negative) 01/04/20 Unknown Urine Nitrite Neg (Negative) 01/04/20 Unknown Urine Bilirubin Neg (Negative) 01/04/20 Unknown Urine Urobilinogen < 2.0 mg/dL (<2.0) 01/04/20 Unknown Ur Leukocyte Esterase Neg (Negative) 01/04/20 Unknown Urine WBC (Auto) 18.0 /HPF (0.0-6.0) H 01/04/20 Unknown Urine RBC (Auto) 24.0 /HPF (0.0-6.0) 01/04/20 Unknown Urine Bacteria (Auto) 4+ /HPF (Negative) 01/04/20 Unknown Urine WBC Clumps 2+ /HPF 01/04/20 Unknown Urine Mucus 1+ /HPF 01/04/20 Unknown Urine Yeast (Budding) 2+ /HPF 01/04/20 Unknown Urine Sperm 3+ /HPF (CARPET LOOM FIXER) 01/04/20 Unknown Urine Opiates Screen Presumptive negative 01/04/20 Unknown Urine Methadone Screen Presumptive negative 01/04/20 Unknown Ur Barbiturates Screen Presumptive negative 01/04/20 Unknown Ur Phencyclidine Scrn Presumptive negative 01/04/20 Unknown Ur Amphetamines Screen Presumptive positive 01/04/20 Unknown U Benzodiazepines Scrn Presumptive negative 01/04/20 Unknown Urine Cocaine Screen Presumptive positive 01/04/20 Unknown U Marijuana (THC) Screen Presumptive negative 01/04/20 Unknown Drugs of Abuse Note Disclamer 01/04/20 Unknown Plasma/Serum Alcohol 0.12 % (0-0.07) H 01/04/20 21:25 Bundy/IV: IV Catheter Type [Left Femoral Triple Lumen Cath ] IV Catheter Type [Left INT / Saline Lock Antecubital] IV Catheter Type [Left Hand] INT / Saline Lock Active Medications - Current Medications Current Medications: Generic Name Dose Route Start Last Admin Trade Name Freq PRN Reason Stop Dose Admin Acetaminophen 650 mg 01/05/20 05:09 Tylenol PO Q4H PRN Pain MILD(1-3)/Fever >100.5/PACHECO Acetaminophen 650 mg 01/05/20 05:09 Tylenol HI Q4H PRN Pain MILD(1-3)/Fever >100.5/PACHECO Fentanyl 50 mcg 01/04/20 23:16 01/04/20 23:43 Sublimaze IV 50 mcg Q10MIN PRN Administration ANALGESIA Norepinephrine 4 mg in 250 mls @ 18.75 mls/hr 01/04/20 22:00 01/04/20 21:00 Levophed Drip 4 Mg/Ns 250 Ml IV 5 mcg/min TITR ROWDY 18.75 mls/hr Administration Protocol 5 MCG/MIN Fentanyl Citrate 2,000 mcg in 100 mls @ 4.035 mls/hr 01/04/20 23:45 01/05/20 07:55 Fentanyl Drip Premix IV 3 mcg/kg/hr TITR ROWDY 12.105 mls/hr Administration Protocol 1 MCG/KG/HR Sodium Chloride 1,000 mls @ 150 mls/hr 01/05/20 05:15 Nacl 0.9% 1000 Ml IV DIRECT ROWDY Piperacillin Sod/Tazobactam Sod 3.375 gm in 50 mls @ 100 mls/hr 01/05/20 05:12 01/05/20 08:12 Zosyn/Ns 3.375gm/50ml IV 100 mls/hr Q8HR ROWDY Administration Protocol Ondansetron HCl 4 mg 01/05/20 05:09 Zofran IV Q8H PRN Nausea And Vomiting Sodium Chloride 10 ml 01/05/20 10:00 Sodium Chloride Flush Syringe 10 Ml IV BID ROWDY Sodium Chloride 10 ml 01/05/20 05:09 Sodium Chloride Flush Syringe 10 Ml IV PRN PRN LINE FLUSH
[2020-01-05] MEDS ORDERED: LORazepam 2 MG/ML VIAL IV PRN (10:38)
--- NOTE | 2020-01-05 13:03 | Event Note ---
Date: 01/05/20 Reviewed case and history from chart. Patient unresponsive. Not on any sedation. Patient was found down in a parking lot. When EMS arrived he was in asystole. There is not a known amount of downtime. I am also not sure how long he was down from EMS arrival to ED where he had ROSC. The code sheet from our hospital shows about a 4-5 minute arrest of PEA that epi and bicarb were given with ROSC. UDS was positive for coke and amphetamines. Patient currently has no cough, no gag, unable to assess pupils but no corneal present. CT scan per report shows significant edema and large subarachnoid hemorrhage. Overall prognosis is guarded to poor. Police have been deployed to address on Drivers License to look for family. Likely guevara of functional recovery is little to none. If no family able to be found will need ethics consult. Patient at high risk for herniation and brain . Await neurology consultation on Tuesday. Continue supportive care. Given PRN ativan in case patient has myoclonus. Very very poor prognosis.
--- NOTE | 2020-01-05 13:21 | Consultation ---
CARDIOLOGY CONSULTATION REFERRING PHYSICIAN: Inna Younger MD REASON FOR CONSULTATION: Advice and opinion regarding cardiac arrest. HISTORY OF PRESENT ILLNESS: The patient is a 49-year-old -Turk[place] gentleman who is seen in the Emergency Room today. He last night was found unresponsive at gas station with trauma to right side of his face. He was in cardiac arrest. EMS started, CPR started, intubated the patient. Unclear what his rhythm was at that time. No ER or EMS data refers to this. The patient had no gag or spontaneous removal on arrival. He was brought to the Emergency Room, intubated with CPR. Initial CT of the head showed diffuse subarachnoid hemorrhage, cerebral edema. Urine positive for cocaine and amphetamines. He was hypotensive and tachycardic. The ER attempted to transfer the patient to [place] or [place] unsuccessfully. I have seen the patient in ICU, he is intubated. No purposeful movement. Discussed with the nurse at bedside. PAST MEDICAL HISTORY: Unknown. PAST SURGICAL HISTORY: Unknown. SOCIAL HISTORY: Unknown, although he is positive for cocaine. FAMILY HISTORY: Unknown. OUTPATIENT MEDICATIONS: Unknown. INPATIENT MEDICATIONS: Reviewed. He has not been at this hospital before. PHYSICAL EXAMINATION: VITAL SIGNS: Blood pressure is 140/70, is in sinus rhythm at this point, heart rate of 90-110, O2 sat is 100% on mechanical ventilation. HEENT: His pupils are fixed and dilated. NECK: Supple, no masses, no JVD. CHEST: Decreased breath sounds at bilateral bases. Overall, moderate air movement. CARDIOVASCULAR: Regular rate and rhythm, S1, S2. ABDOMEN: Soft, nontender, nondistended. Normoactive bowel sounds in 4 quadrants. No mass or bruits. EXTREMITIES: No cyanosis, clubbing, edema. Good pulses. SKIN: Intact. No rashes. EKG shows sinus tachycardia. We will repeat EKG. LABORATORY DATA: WBC is 17.9, hemoglobin is 14.8, hematocrit 42.7, platelets are 216. D-dimer greater than 10,000. pH initially was 7.1, now 7.3. PaO2 is 404, now 218. Bicarbonate was 13, now 21. Sodium 140. Creatinine was 1.9, now 2.8. Lactic acid 2.1. First troponin is 2.9. Again, his UA is positive for amphetamines and cocaine. Alcohol level was 0.12. His chest x-ray shows no acute findings. His CT head shows diffuse subarachnoid hemorrhage with cerebral edema. Cervical CT spine is unremarkable. CT chest; no evidence of PE, bibasilar dependent atelectasis. CT abdomen and pelvis does not reveal any acute changes at this point. These reports are as per radiology. ASSESSMENT AND PLAN: In conclusion, the patient is a 49-year-old -Turkmen male. 1. Status post cardiopulmonary arrest of unclear etiology/unclear rhythm, prolonged downtime, now intubated, unsedated. No purposeful response, found to have diffuse subarachnoid hemorrhage with diffuse cerebral edema and facial trauma. Troponin is positive of unclear significance at this point. Given his intracranial pathology, obviously would not initiate any anticoagulants or antiplatelets. Recheck EKG and echocardiogram. At this point, conservative therapy is prudent from a cardiac perspective. Recommend printed circuit board assembler care as well as Neurology and possibly Neurosurgery. We will follow along. I discussed with Dr. Younger, the hospitalist team. Greater than 60 minutes of critical care spent time in the care of this patient. JOB# [id number] SBM/NTS
--- NOTE | 2020-01-05 14:13 | Progress Note ---
Subjective Date of service: 01/05/20 Interval history: see my note and feel that Dr. Bridges' description is very accurate, I fnd no reflexes and no corneal reflexes and absent Doll's Eyes suspect anoxia caused bt cocaine and amphetamines Objective - Vital Sign Vital Signs - 12hr 01/05/20 01/05/20 01/05/20 03:27 03:30 03:45 Temperature Pulse Rate 128 H 128 H 126 H Respiratory 22 22 22 Rate Blood Pressure 145/109 145/109 142/108 O2 Sat by Pulse 99 99 99 Oximetry 01/05/20 01/05/20 01/05/20 03:50 04:00 04:15 Temperature Pulse Rate 127 H 125 H 124 H Respiratory 22 22 Rate Blood Pressure 150/105 142/100 138/95 O2 Sat by Pulse 99 99 99 Oximetry 01/05/20 01/05/20 01/05/20 04:30 04:45 05:00 Temperature Pulse Rate 124 H 125 H 125 H Respiratory 22 22 22 Rate Blood Pressure 130/99 147/104 151/104 O2 Sat by Pulse 99 99 99 Oximetry 01/05/20 01/05/20 01/05/20 05:15 05:30 05:46 Temperature Pulse Rate 122 H 122 H 119 H Respiratory 22 22 17 Rate Blood Pressure 131/100 119/95 97/69 O2 Sat by Pulse 99 99 100 Oximetry 01/05/20 01/05/20 01/05/20 06:00 06:15 06:30 Temperature Pulse Rate 120 H 115 H 113 H Respiratory 22 22 22 Rate Blood Pressure 148/109 107/78 104/72 O2 Sat by Pulse 99 99 99 Oximetry 01/05/20 01/05/20 01/05/20 06:45 07:00 07:27 Temperature Pulse Rate 113 H 112 H 105 H Respiratory 22 22 22 Rate Blood Pressure 103/65 94/60 104/72 O2 Sat by Pulse 99 99 100 Oximetry 01/05/20 01/05/20 01/05/20 07:30 07:45 08:00 Temperature Pulse Rate 104 H 103 H 102 H Respiratory 22 22 22 Rate Blood Pressure 135/99 151/107 148/103 O2 Sat by Pulse 100 100 100 Oximetry 01/05/20 01/05/20 01/05/20 08:15 08:30 08:45 Temperature Pulse Rate 101 H 101 H 102 H Respiratory 22 22 22 Rate Blood Pressure 155/113 153/103 157/116 O2 Sat by Pulse 100 100 100 Oximetry 01/05/20 01/05/20 01/05/20 08:58 09:00 09:15 Temperature Pulse Rate 101 H 102 H 102 H Respiratory 18 18 Rate Blood Pressure 158/116 158/116 152/118 O2 Sat by Pulse 99 100 99 Oximetry 01/05/20 01/05/20 01/05/20 09:30 09:45 10:00 Temperature Pulse Rate 103 H 105 H 105 H Respiratory 18 18 18 Rate Blood Pressure 161/118 175/122 172/126 O2 Sat by Pulse 99 99 98 Oximetry 01/05/20 01/05/20 01/05/20 10:15 10:30 10:46 Temperature 98.4 F Pulse Rate 108 H 108 H 104 H Respiratory 18 18 18 Rate Blood Pressure 151/112 141/102 145/99 O2 Sat by Pulse 98 98 98 Oximetry 01/05/20 01/05/20 01/05/20 11:00 11:37 12:25 Temperature Pulse Rate 103 H 96 H 81 Respiratory 18 Rate Blood Pressure 140/97 145/102 O2 Sat by Pulse 98 98 Oximetry 01/05/20 01/05/20 12:30 13:25 Temperature Pulse Rate 98 H Respiratory Rate Blood Pressure 145/102 O2 Sat by Pulse 98 Oximetry - Laboratory Findings CBC and BMP: 01/05/20 05:29 01/05/20 05:29 Abnormal Lab Findings: Abnormal Labs 01/04/20 01/04/20 01/04/20 21:25 21:25 21:25 WBC 12.1 H Hgb 11.5 L MCHC Plt Count 130 L Lymph % (Auto) Lymph # [place] # Seg Neutrophils % Seg Neutrophils # 8.4 H PT 17.9 H INR 1.45 H D-Dimer > 32597 H ABG pH ABG pO2 ABG HCO3 ABG O2 Saturation ABG Base Excess ABG Hemoglobin Chloride 94.7 L Carbon Dioxide 13 L BUN Creatinine 1.9 H Glucose 281 H Lactic Acid Calcium 7.4 L AST 240 H ALT 196 H Total Creatine Kinase CK-MB (CK-2) Troponin T Total Protein 6.0 L Albumin 3.7 L HDL Cholesterol Urine WBC (Auto) Plasma/Serum Alcohol 01/04/20 01/04/20 01/04/20 21:25 21:41 Unknown WBC Hgb MCHC Plt Count Lymph % (Auto) Lymph # [place] # Seg Neutrophils % Seg Neutrophils # PT INR D-Dimer ABG pH 7.159 L* ABG pO2 404.4 H ABG HCO3 14.6 L ABG O2 Saturation 99.6 H ABG Base Excess -13.5 L ABG Hemoglobin 12.2 L Chloride Carbon Dioxide BUN Creatinine Glucose Lactic Acid Calcium AST ALT Total Creatine Kinase CK-MB (CK-2) Troponin T Total Protein Albumin HDL Cholesterol Urine WBC (Auto) 18.0 H Plasma/Serum Alcohol 0.12 H 01/05/20 01/05/20 01/05/20 03:38 05:29 05:29 WBC 17.9 H Hgb MCHC 35 H Plt Count Lymph % (Auto) 4.2 L Lymph # 0.7 L [place] # 1.2 H Seg Neutrophils % 88.9 H Seg Neutrophils # 15.9 H PT INR D-Dimer ABG pH ABG pO2 218.9 H ABG HCO3 ABG O2 Saturation 99.3 H ABG Base Excess ABG Hemoglobin Chloride Carbon Dioxide 21 L D BUN 31 H Creatinine 2.8 H Glucose 134 H Lactic Acid Calcium 8.3 L AST ALT Total Creatine Kinase CK-MB (CK-2) Troponin T Total Protein Albumin HDL Cholesterol Urine WBC (Auto) Plasma/Serum Alcohol 01/05/20 01/05/20 05:41 05:41 WBC Hgb MCHC Plt Count Lymph % (Auto) Lymph # [place] # Seg Neutrophils % Seg Neutrophils # PT INR D-Dimer ABG pH ABG pO2 ABG HCO3 ABG O2 Saturation ABG Base Excess ABG Hemoglobin Chloride Carbon Dioxide BUN Creatinine Glucose Lactic Acid 2.10 H* Calcium AST ALT Total Creatine Kinase 625 H CK-MB (CK-2) 20.2 H Troponin T 2.990 H* D Total Protein Albumin HDL Cholesterol 68 H Urine WBC (Auto) Plasma/Serum Alcohol
[2020-01-05 14:46] LABS: Creatine Kinase MB 20.9 ng/mL (0.0-4.0)
--- NOTE | 2020-01-05 16:00 | Event Note ---
Date: 01/05/20 I spoke with the patient's mother Ms. Nieto who is in the emergency room over the phone Patient's condition, imaging and test reports, treatment plan and poor prognosis, ED physicians efforts to transfer the patient to a tertiary care center for neurosurgical services And the reasons for refusal by Reginald and Tim Answered all her questions, she requests to see the patient.I requested ER nurse Pricilla To find out whether the mother could come and visit the patient in ICU.
[2020-01-06 05:07] LABS: ABG Base Excess -0.1 mmol/L (-2.0-3.0); ABG HCO3 23.8 mmol/L (20.0-26.0); ABG Methemoglobin 0.4 % (0.0-1.5); ABG Oxygen Saturation 98.3 % (95.0-99.0); ABG PCO2 36.8 mm Hg; ABG PH 7.429 pH Units (7.350-7.450)
[2020-01-06 05:30] LABS: Basophils % (Auto) 0.2 % (0.0-1.8); Eosinophils % (Auto) 0.4 % (0.0-4.3); Hemoglobin 13.7 gm/dl (11.8-15.2); Lymphocytes # (Auto) 0.7 K/mm3 (1.2-5.4); Lymphocytes % (Auto) 6.3 % (13.4-35.0); Mean Corpuscular HGB Conc 33 % (32-34); Mean Corpuscular Volume 90 fl (84-94); Monocytes # (Auto) 0.7 K/mm3 (0.0-0.8); Monocytes % (Auto) 6.2 % (0.0-7.3); Platelet Count 129 K/mm3 (140-440); Red Blood Count 4.55 M/mm3 (3.65-5.03); Red Cell Distribution Width 15.7 % (13.2-15.2)
[2020-01-06 05:53] LABS: Albumin 3.5 g/dL (3.9-5); Calcium 7.7 mg/dL (8.4-10.2)
[2020-01-06] MEDS: PIPERACILLIN/TAZOBACTAM 3.375 3.375 GM/50 ML BAG IV SCH ×3 (08:17→21:44)
--- NOTE | 2020-01-06 08:40 | Progress Note ---
Assessment and Plan Assessment and plan: --Acute diffuse subarachnoid hemorrhage with cerebral edema; As per notes ER and admitting physician tried to transfer the patient to neurosurgical services at [place] and [place], no surgical intervention advised, Unable to accept the transfer Neurology consulted, supportive care --Acute metabolic encephalopathy; Secondary to subarachnoid hemorrhage and multiple other medical issues Closely monitor, patient is intubated --Acute hypoxic respiratory failure; Requiring intubation, on ventilatory support Nebulizers, supportive care, pulmonary critical consulted --Outside the hospital cardiac arrest; Refer to EMS note for details --Non-ST elevation AL; Serial cardiac enzymes, echocardiogram for LV function ejection fraction, Cardiology consult, discussed with Dr. Renan Rose --Hypotension ; on Levophed Titrate systolic blood pressures to more than 100/map 65 IV fluids --Acute kidney injury; probably secondary to ATN, worsening renal function IV hydration, monitor renal function, consult nephrology --Acute liver failure; transaminases trending down Closely monitor, poor prognosis --Leukocytosis/urinary tract infection Empiric antibiotics, follow cultures --Lactic acidosis; probably secondary to UTI Closely monitor --Polysubstance abuse; Drug screen positive for cocaine and amphetamines Supportive care, primary substance abuse counselor the patient when he is stable --DVT prophylaxis; SCDs No pharmacologic anticoagulation due to subarachnoid hemorrhage --Full CODE STATUS Patient is critically ill with multiple serious medical problems, With very poor prognosis. We will discuss patient's condition prognosis and treatment plan with the family when they are available Follow clinically and adjust management as needed Follow medical social consultant recommendations Critical care time 35 minutes History Interval history: Patient seen and examined at the bedside in ICU Patient's chart and other medical records imaging studies reviewed Patient is unresponsive on ventilatory support Absent corneal and gag reflex Vital signs reviewed Hospitalist Physical - Constitutional Vitals: Temp Pulse Resp BP Pulse Ox 99.4 F 84 18 125/78 99 01/06/20 03:43 01/06/20 08:10 01/06/20 07:00 01/06/20 08:10 01/06/20 08:10 General appearance: Present: well-nourished, other (Unresponsive, intubated on vent) - EENT Eyes: Present: EOM intact (No corneal reflex) - Neck Neck: Present: supple. Absent: enlarged thyroid - Respiratory Respiratory effort: normal Respiratory: bilateral: diminished, rhonchi, negative: rales, wheezing - Cardiovascular Rhythm: regular Heart Sounds: Present: S1 & S2 - Extremities Extremities: no ischemia, No edema - Abdominal General gastrointestinal: soft, non-tender, non-distended, normal bowel sounds - Integumentary Integumentary: Present: clear, warm - Psychiatric Psychiatric: other (Unresponsive) - Neurologic Neurologic: other (Unresponsive) Results - Labs CBC & Chem 7: 01/06/20 04:41 01/06/20 04:41 Labs: Laboratory Last Values WBC 11.1 K/mm3 (4.5-11.0) H 01/06/20 04:41 RBC 4.55 M/mm3 (3.65-5.03) 01/06/20 04:41 Hgb 13.7 gm/dl (11.8-15.2) 01/06/20 04:41 Hct 41.0 % (35.5-45.6) 01/06/20 04:41 MCV 90 fl (84-94) 01/06/20 04:41 MCH 30 pg (28-32) 01/06/20 04:41 MCHC 33 % (32-34) 01/06/20 04:41 RDW 15.7 % (13.2-15.2) H 01/06/20 04:41 Plt Count 129 K/mm3 (140-440) L 01/06/20 04:41 Lymph % (Auto) 6.3 % (13.4-35.0) L 01/06/20 04:41 [place] % (Auto) 6.2 % (0.0-7.3) 01/06/20 04:41 Eos % (Auto) 0.4 % (0.0-4.3) 01/06/20 04:41 Baso % (Auto) 0.2 % (0.0-1.8) 01/06/20 04:41 Lymph # 0.7 K/mm3 (1.2-5.4) L 01/06/20 04:41 [place] # 0.7 K/mm3 (0.0-0.8) 01/06/20 04:41 Eos # 0.0 K/mm3 (0.0-0.4) 01/06/20 04:41 Baso # 0.0 K/mm3 (0.0-0.1) 01/06/20 04:41 Seg Neutrophils % 86.9 % (40.0-70.0) H 01/06/20 04:41 Seg Neutrophils # 9.6 K/mm3 (1.8-7.7) H 01/06/20 04:41 PT 17.9 Sec. (12.2-14.9) H 01/04/20 21:25 INR 1.45 (0.87-1.13) H 01/04/20 21:25 APTT 36.0 Sec. (24.2-36.6) 01/04/20 21:25 D-Dimer > 30537 ng/mlDDU (0-234) H 01/04/20 21:25 ABG pH 7.429 pH Units (7.350-7.450) 01/06/20 04:54 ABG pCO2 36.8 mm Hg 01/06/20 04:54 ABG pO2 118.0 mm Hg (80.0-90.0) H 01/06/20 04:54 ABG HCO3 23.8 mmol/L (20.0-26.0) 01/06/20 04:54 ABG O2 Saturation 98.3 % (95.0-99.0) 01/06/20 04:54 ABG O2 Content 19.1 (0.0-44) 01/06/20 04:54 ABG Base Excess -0.1 mmol/L (-2.0-3.0) 01/06/20 04:54 ABG Hemoglobin 13.9 gm/dl (14.0-18.0) L 01/06/20 04:54 ABG Carboxyhemoglobin 1.0 % (0.0-5.0) 01/06/20 04:54 ABG Methemoglobin 0.4 % (0.0-1.5) 01/06/20 04:54 Oxyhemoglobin 96.9 % (95.0-99.0) 01/06/20 04:54 FiO2 30 % 01/06/20 04:54 Sodium 153 mmol/L (137-145) H D 01/06/20 04:41 Potassium 4.3 mmol/L (3.6-5.0) 01/06/20 04:41 Chloride 112.0 mmol/L (98-107) H 01/06/20 04:41 Carbon Dioxide 24 mmol/L (22-30) 01/06/20 04:41 Anion Gap 21 mmol/L 01/06/20 04:41 BUN 39 mg/dL (9-20) H 01/06/20 04:41 Creatinine 3.9 mg/dL (0.8-1.5) H 01/06/20 04:41 Estimated GFR 20 ml/min 01/06/20 04:41 BUN/Creatinine Ratio 10 % 01/06/20 04:41 Glucose 125 mg/dL (75-100) H 01/06/20 04:41 POC Glucose 119 (70-105) H 01/05/20 18:49 Lactic Acid 2.10 mmol/L (0.7-2.0) H* 01/05/20 05:41 Calcium 7.7 mg/dL (8.4-10.2) L 01/06/20 04:41 Phosphorus 3.40 mg/dL (2.5-4.5) 01/06/20 04:41 Magnesium 2.20 mg/dL (1.7-2.3) 01/06/20 04:41 Total Bilirubin 0.40 mg/dL (0.1-1.2) 01/06/20 04:41 AST 119 units/L (5-40) H 01/06/20 04:41 ALT 167 units/L (7-56) H 01/06/20 04:41 Alkaline Phosphatase 58 units/L (35-129) 01/06/20 04:41 Total Creatine Kinase 665 units/L (55-170) H 01/05/20 13:15 CK-MB (CK-2) 20.9 ng/mL (0.0-4.0) H 01/05/20 13:15 CK-MB (CK-2) Rel Index 3.1 (0-4) 01/05/20 13:15 Troponin T 1.930 ng/mL (0.00-0.029) H* D 01/05/20 13:15 Total Protein 6.4 g/dL (6.3-8.2) 01/06/20 04:41 Albumin 3.5 g/dL (3.9-5) L 01/06/20 04:41 Albumin/Globulin Ratio 1.2 % 01/06/20 04:41 Triglycerides 97 mg/dL (2-149) 01/05/20 05:41 Cholesterol 119 mg/dL (50-199) 01/05/20 05:41 LDL Cholesterol Direct 50 mg/dL (50-130) 01/05/20 05:41 HDL Cholesterol 68 mg/dL (40-59) H 01/05/20 05:41 Cholesterol/HDL Ratio 1.75 % 01/05/20 05:41 Urine Color Yellow (Yellow) 01/04/20 Unknown Urine Turbidity Cloudy (Clear) 01/04/20 Unknown Urine pH 6.0 (5.0-7.0) 01/04/20 Unknown Ur Specific [place] 1.019 (1.003-1.030) 01/04/20 Unknown Urine Protein 100 mg/dl mg/dL (Negative) 01/04/20 Unknown Urine Glucose (UA) Neg mg/dL (Negative) 01/04/20 Unknown Urine Ketones Neg mg/dL (Negative) 01/04/20 Unknown Urine Blood Neg (Negative) 01/04/20 Unknown Urine Nitrite Neg (Negative) 01/04/20 Unknown Urine Bilirubin Neg (Negative) 01/04/20 Unknown Urine Urobilinogen < 2.0 mg/dL (<2.0) 01/04/20 Unknown Ur Leukocyte Esterase Neg (Negative) 01/04/20 Unknown Urine WBC (Auto) 18.0 /HPF (0.0-6.0) H 01/04/20 Unknown Urine RBC (Auto) 24.0 /HPF (0.0-6.0) 01/04/20 Unknown Urine Bacteria (Auto) 4+ /HPF (Negative) 01/04/20 Unknown Urine WBC Clumps 2+ /HPF 01/04/20 Unknown Urine Mucus 1+ /HPF 01/04/20 Unknown Urine Yeast (Budding) 2+ /HPF 01/04/20 Unknown Urine Sperm 3+ /HPF (INSURANCE OPERATIONS REP) 01/04/20 Unknown Urine Opiates Screen Presumptive negative 01/04/20 Unknown Urine Methadone Screen Presumptive negative 01/04/20 Unknown Ur Barbiturates Screen Presumptive negative 01/04/20 Unknown Ur Phencyclidine Scrn Presumptive negative 01/04/20 Unknown Ur Amphetamines Screen Presumptive positive 01/04/20 Unknown U Benzodiazepines Scrn Presumptive negative 01/04/20 Unknown Urine Cocaine Screen Presumptive positive 01/04/20 Unknown U Marijuana (THC) Screen Presumptive negative 01/04/20 Unknown Drugs of Abuse Note Disclamer 01/04/20 Unknown Plasma/Serum Alcohol 0.12 % (0-0.07) H 01/04/20 21:25 Microbiology: Microbiology 01/04/20 21:41 Tracheal Aspirate Sputum Culture - Preliminary 01/05/20 06:00 Peripheral/Venous Blood Culture - Preliminary Culture in Progress 01/05/20 05:41 Peripheral/Venous Blood Culture - Preliminary Culture in Progress [place]/IV: Voiding Method Indwelling Catheter IV Catheter Type [Right Triple Lumen Cath Femoral] IV Catheter Type [Left Femoral Triple Lumen Cath ] IV Catheter Type [Left INT / Saline Lock Antecubital] IV Catheter Type [Left Hand] INT / Saline Lock Active Medications - Current Medications Current Medications: Generic Name Dose Route Start Last Admin Trade Name Freq PRN Reason Stop Dose Admin Acetaminophen 650 mg 01/05/20 05:09 Tylenol PO Q4H PRN Pain MILD(1-3)/Fever >100.5/PACHECO Acetaminophen 650 mg 01/05/20 05:09 Tylenol [place] Q4H PRN Pain MILD(1-3)/Fever >100.5/PACHECO Fentanyl 50 mcg 01/04/20 23:16 01/04/20 23:43 Sublimaze IV 50 mcg Q10MIN PRN Administration ANALGESIA Norepinephrine 4 mg in 250 mls @ 18.75 mls/hr 01/04/20 22:00 01/05/20 11:40 Levophed Drip 4 Mg/Ns 250 Ml IV 0 mcg/min TITR ROWDY 0 mls/hr Titration Protocol 5 MCG/MIN Fentanyl Citrate 2,000 mcg in 100 mls @ 4.035 mls/hr 01/04/20 23:45 01/05/20 18:23 Fentanyl Drip Premix IV 0 mcg/kg/hr TITR ROWDY 0 mls/hr Titration Protocol 1 MCG/KG/HR Piperacillin Sod/Tazobactam Sod 3.375 gm in 50 mls @ 100 mls/hr 01/05/20 05:12 01/06/20 08:17 Zosyn/Ns 3.375gm/50ml IV 100 mls/hr Q8HR ROWDY Administration Protocol Lorazepam 2 mg 01/05/20 10:38 Ativan IV Q4H PRN Agitation Ondansetron HCl 4 mg 01/05/20 05:09 Zofran IV Q8H PRN Nausea And Vomiting Sodium Chloride 10 ml 01/05/20 10:00 01/05/20 22:36 Sodium Chloride Flush Syringe 10 Ml IV 10 ml BID ROWDY Administration Sodium Chloride 10 ml 01/05/20 05:09 Sodium Chloride Flush Syringe 10 Ml IV PRN PRN LINE FLUSH
--- NOTE | 2020-01-06 09:56 | Progress Note ---
Subjective Date of service: 01/06/20 Interval history: discussed with cardiology that based on my careful review of the CT there [facility] cardiac arrest the cocaine/meth/ alcohol intoxication ( 0.12) likely caused cardiac arrest and meht cocanie causes degree off Subarachnoid bleeding do not see site of aneurysm... clinical siituation is poor prognosis related to pulseless arrest and [employer]GER signs of hypoxia not candidate for n/surg intervention conservative management Objective - Vital Sign Vital Signs - 12hr 01/05/20 01/06/20 01/06/20 23:56 00:00 00:15 Temperature 98.9 F Pulse Rate 86 Pulse Rate [ 85 From Monitor] Respiratory 18 Rate Blood Pressure 110/65 114/77 O2 Sat by Pulse 99 99 Oximetry 01/06/20 01/06/20 01/06/20 01:00 02:00 03:00 Temperature Pulse Rate Pulse Rate [ From Monitor] Respiratory 18 Rate Blood Pressure 114/72 114/72 111/67 O2 Sat by Pulse Oximetry 01/06/20 01/06/20 01/06/20 03:43 04:00 04:47 Temperature 99.4 F Pulse Rate 85 Pulse Rate [ 85 From Monitor] Respiratory 18 Rate Blood Pressure 111/76 O2 Sat by Pulse 100 98 Oximetry 01/06/20 01/06/20 01/06/20 05:00 06:00 07:00 Temperature Pulse Rate Pulse Rate [ From Monitor] Respiratory 18 18 18 Rate Blood Pressure 107/73 102/69 104/67 O2 Sat by Pulse Oximetry 01/06/20 01/06/20 08:00 08:10 Temperature Pulse Rate 84 Pulse Rate [ 88 From Monitor] Respiratory 18 Rate Blood Pressure 125/78 O2 Sat by Pulse 98 99 Oximetry - Laboratory Findings CBC and BMP: 01/06/20 04:41 01/06/20 04:41 Abnormal Lab Findings: Abnormal Labs 01/04/20 01/04/20 01/04/20 21:25 21:25 21:25 WBC 12.1 H Hgb 11.5 L MCHC RDW Plt Count 130 L Lymph % (Auto) Lymph # [place] # Seg Neutrophils % Seg Neutrophils # 8.4 H PT 17.9 H INR 1.45 H D-Dimer > 38893 H ABG pH ABG pO2 ABG HCO3 ABG O2 Saturation ABG Base Excess ABG Hemoglobin Sodium Chloride 94.7 L Carbon Dioxide 13 L BUN Creatinine 1.9 H Glucose 281 H POC Glucose Lactic Acid Calcium 7.4 L AST 240 H ALT 196 H Total Creatine Kinase CK-MB (CK-2) Troponin T Total Protein 6.0 L Albumin 3.7 L HDL Cholesterol Urine WBC (Auto) Plasma/Serum Alcohol 01/04/20 01/04/20 01/04/20 21:25 21:41 Unknown WBC Hgb MCHC RDW Plt Count Lymph % (Auto) Lymph # [place] # Seg Neutrophils % Seg Neutrophils # PT INR D-Dimer ABG pH 7.159 L* ABG pO2 404.4 H ABG HCO3 14.6 L ABG O2 Saturation 99.6 H ABG Base Excess -13.5 L ABG Hemoglobin 12.2 L Sodium Chloride Carbon Dioxide BUN Creatinine Glucose POC Glucose Lactic Acid Calcium AST ALT Total Creatine Kinase CK-MB (CK-2) Troponin T Total Protein Albumin HDL Cholesterol Urine WBC (Auto) 18.0 H Plasma/Serum Alcohol 0.12 H 01/05/20 01/05/20 01/05/20 03:38 05:29 05:29 WBC 17.9 H Hgb MCHC 35 H RDW Plt Count Lymph % (Auto) 4.2 L Lymph # 0.7 L [place] # 1.2 H Seg Neutrophils % 88.9 H Seg Neutrophils # 15.9 H PT INR D-Dimer ABG pH ABG pO2 218.9 H ABG HCO3 ABG O2 Saturation 99.3 H ABG Base Excess ABG Hemoglobin Sodium Chloride Carbon Dioxide 21 L D BUN 31 H Creatinine 2.8 H Glucose 134 H POC Glucose Lactic Acid Calcium 8.3 L AST ALT Total Creatine Kinase CK-MB (CK-2) Troponin T Total Protein Albumin HDL Cholesterol Urine WBC (Auto) Plasma/Serum Alcohol 01/05/20 01/05/20 01/05/20 05:41 05:41 13:15 WBC Hgb MCHC RDW Plt Count Lymph % (Auto) Lymph # [place] # Seg Neutrophils % Seg Neutrophils # PT INR D-Dimer ABG pH ABG pO2 ABG HCO3 ABG O2 Saturation ABG Base Excess ABG Hemoglobin Sodium Chloride Carbon Dioxide BUN Creatinine Glucose POC Glucose Lactic Acid 2.10 H* Calcium AST ALT Total Creatine Kinase 625 H 665 H CK-MB (CK-2) 20.2 H 20.9 H Troponin T 2.990 H* D 1.930 H* D Total Protein Albumin HDL Cholesterol 68 H Urine WBC (Auto) Plasma/Serum Alcohol 01/05/20 01/06/20 01/06/20 18:49 04:41 04:41 WBC 11.1 H Hgb MCHC RDW 15.7 H Plt Count 129 L Lymph % (Auto) 6.3 L Lymph # 0.7 L [place] # Seg Neutrophils % 86.9 H Seg Neutrophils # 9.6 H PT INR D-Dimer ABG pH ABG pO2 ABG HCO3 ABG O2 Saturation ABG Base Excess ABG Hemoglobin Sodium 153 H D Chloride 112.0 H Carbon Dioxide BUN 39 H Creatinine 3.9 H Glucose 125 H POC Glucose 119 H Lactic Acid Calcium 7.7 L AST 119 H ALT 167 H Total Creatine Kinase CK-MB (CK-2) Troponin T Total Protein Albumin 3.5 L HDL Cholesterol Urine WBC (Auto) Plasma/Serum Alcohol 01/06/20 04:54 WBC Hgb MCHC RDW Plt Count Lymph % (Auto) Lymph # [place] # Seg Neutrophils % Seg Neutrophils # PT INR D-Dimer ABG pH ABG pO2 118.0 H ABG HCO3 ABG O2 Saturation ABG Base Excess ABG Hemoglobin 13.9 L Sodium Chloride Carbon Dioxide BUN Creatinine Glucose POC Glucose Lactic Acid Calcium AST ALT Total Creatine Kinase CK-MB (CK-2) Troponin T Total Protein Albumin HDL Cholesterol Urine WBC (Auto) Plasma/Serum Alcohol
--- NOTE | 2020-01-06 10:24 | Progress Note ---
Assessment and Plan 49yo AAM: 1. s/p cardiac arrest * initial rhythm unknown * nstemi * tte reveals preserved lv fxn * ecg--> sr w/o acute changes 2. Diffuse SAH w/ cerebral edema * prolonged downtime * likely anoxic encephalopathy * neuro following 3. Acute resp failure * inability to protect airway 4. WENDY 5. Acute transaminitis 6. Polysubstatnce abuse Cont supportive care from a cardiac perspective Obviously, no antiplatelets or anticoagulants - Patient Problems (1) History of cardiac arrest Current Visit: Yes Status: Acute (2) Subarachnoid hemorrhage Current Visit: Yes Status: Acute Subjective Date of service: 01/06/20 Interval history: intubated and nonresponsive Objective Vital Signs Temp Pulse Pulse Resp BP Pulse Ox 01/06/20 08:10 84 125/78 99 01/06/20 08:00 88 18 98 01/06/20 07:00 18 104/67 01/06/20 06:00 18 102/69 01/06/20 05:00 18 107/73 01/06/20 04:47 85 98 01/06/20 04:00 85 18 111/76 100 01/06/20 03:43 99.4 F 01/06/20 03:00 18 111/67 01/06/20 02:00 114/72 01/06/20 01:00 114/72 01/06/20 00:15 86 114/77 99 01/06/20 00:00 85 18 110/65 99 01/05/20 23:56 98.9 F 01/05/20 20:40 89 106/78 99 01/05/20 20:00 99.9 F H 88 18 99 01/05/20 16:14 90 118/85 99 01/05/20 16:00 97.4 F L 91 H 91 H 18 98 01/05/20 13:25 98 H 98 01/05/20 12:30 145/102 01/05/20 12:25 81 145/102 01/05/20 12:00 96 H 96 H 18 98 01/05/20 11:37 96 H 98 01/05/20 11:00 103 H 18 140/97 98 01/05/20 10:46 104 H 18 145/99 98 01/05/20 10:30 98.4 F 108 H 18 141/102 98 - Labs and Meds Cardiac Enzymes 01/05/20 01/06/20 Range/Units 13:15 04:41 AST 119 H (5-40) units/L CK-MB (CK-2) 20.9 H (0.0-4.0) ng/mL CBC 01/06/20 Range/Units 04:41 WBC 11.1 H (4.5-11.0) K/mm3 RBC 4.55 (3.65-5.03) M/mm3 Hgb 13.7 (11.8-15.2) gm/dl Hct 41.0 (35.5-45.6) % Plt Count 129 L (140-440) K/mm3 Lymph # 0.7 L (1.2-5.4) K/mm3 [place] # 0.7 (0.0-0.8) K/mm3 Eos # 0.0 (0.0-0.4) K/mm3 Baso # 0.0 (0.0-0.1) K/mm3 Comprehensive Metabolic Panel 01/06/20 Range/Units 04:41 Sodium 153 H D (137-145) mmol/L Potassium 4.3 (3.6-5.0) mmol/L Chloride 112.0 H (98-107) mmol/L Carbon Dioxide 24 (22-30) mmol/L BUN 39 H (9-20) mg/dL Creatinine 3.9 H (0.8-1.5) mg/dL Glucose 125 H (75-100) mg/dL Calcium 7.7 L (8.4-10.2) mg/dL AST 119 H (5-40) units/L ALT 167 H (7-56) units/L Alkaline Phosphatase 58 (35-129) units/L Total Protein 6.4 (6.3-8.2) g/dL Albumin 3.5 L (3.9-5) g/dL
--- NOTE | 2020-01-06 13:05 | Consultation ---
History of Present Illness - History of Present Illness Thank you for the consultation Patient was evaluated today, around 10:45 in the morning My assessment and plan are as follows Acute kidney injury, worsening renal function but there is no emergent indication for renal placement therapy, he has also received IV contrast Likely etiology appears to be acute tubular necrosis rule out underlying chronic kidney disease respiratory failure currently intubated Respiratory failure: Blood gases appear to be satisfactory Mild hypernatremia to monitor and follow sodium 140- 153 today Acidosis appears to have improved, lactic acid level was 2.1 needs follow-up Creatinine kinase only 625, 665 with elevated troponin likely due to non-ST elevation PA, low-grade rhabdomyolysis status post fall Author: Dannie Qiu M.D. [facility], [address] [place] [address] Tel; [phone] Source of information: From current chart patient intubated discussed with IMS service History of present illness 49-year-old male [place] un[place] station, noted to have worsening renal failure in the setting of 4 non-ST elevation PA polysubstance abuse Possibly also having anoxic brain injury, patient does have a Bundy catheter which is draining clear light color and yellow urine events of this hospitalization were noted Being followed by IMS, cardiology as well as neurology Past medical history: Current allergies: Reviewed from the current chart Social history: Reviewed from the current chart Family history: Reviewed from the current chart Review of system: unable to obtain due to intubated status possible anoxic brain injury Physical examination Vitals: Reviewed General: No acute distress/ patient appears to be comatose HEENT: Oral mucosa moist no pallor or icterus /Orally intubated Neck: Supple without any JVD thyromegaly or nodular mass Chest: Clear to auscultation Heart: Regular rate and rhythm S1-S2 heard no S3-S4 Abdomen: Soft nontender, bowel sounds present no renal bruit no suprapubic masses no CVA tenderness noted Extremity: Minimal edema dry skin no peripheral cyanosis Endocrine: Thyroid not enlarged Psychiatric: No agitation and aggression noted Musculoskeletal: No joint effusion noted Labs and x-rays: Reviewed from this admission Medications and Allergies Allergies Allergy/AdvReac Type Severity Reaction Status Date / Time No Known Allergies Allergy Verified 01/04/20 21:59 Home Medications Medication Instructions Recorded Confirmed Last Taken Type Unobtainable 01/05/20 01/05/20 Unknown History Active Meds: Active Medications Acetaminophen (Tylenol) 650 mg PO Q4H PRN PRN Reason: Pain MILD(1-3)/Fever >100.5/PACHECO Acetaminophen (Tylenol) 650 mg [place] Q4H PRN PRN Reason: Pain MILD(1-3)/Fever >100.5/PACHECO Fentanyl (Sublimaze) 50 mcg IV Q10MIN PRN PRN Reason: ANALGESIA Last Admin: 01/04/20 23:43 Dose: 50 mcg Documented by: Norepinephrine (Levophed Drip 4 Mg/Ns 250 Ml) 4 mg in 250 mls @ 18.75 mls/hr IV TITR ROWDY; Protocol Last Titration: 01/05/20 11:40 Dose: 0 mcg/min, 0 mls/hr Documented by: Fentanyl Citrate (Fentanyl Drip Premix) 2,000 mcg in 100 mls @ 4.035 mls/hr IV TITR ROWDY; Protocol Last Titration: 01/05/20 18:23 Dose: 0 mcg/kg/hr, 0 mls/hr Documented by: Piperacillin Sod/Tazobactam Sod (Zosyn/Ns 3.375gm/50ml) 3.375 gm in 50 mls @ 100 mls/hr IV Q8HR ROWDY; Protocol Last Admin: 01/06/20 08:17 Dose: 100 mls/hr Documented by: Lorazepam (Ativan) 2 mg IV Q4H PRN PRN Reason: Agitation Ondansetron HCl (Zofran) 4 mg IV Q8H PRN PRN Reason: Nausea And Vomiting Sodium Chloride (Sodium Chloride Flush Syringe 10 Ml) 10 ml IV BID [facility] Last Admin: 01/06/20 09:19 Dose: 10 ml Documented by: Sodium Chloride (Sodium Chloride Flush Syringe 10 Ml) 10 ml IV PRN PRN PRN Reason: LINE FLUSH Exam - Vital Signs Vital signs: Vital Signs Pulse BP Pulse Ox 74 149/73 97 01/04/20 21:30 01/04/20 21:30 01/04/20 21:30 Results - Lab Results 01/06/20 04:41 01/06/20 04:41 Most recent lab results ABG pH 7.429 pH Units (7.350-7.450) 01/06/20 04:54 ABG pCO2 36.8 mm Hg 01/06/20 04:54 ABG pO2 118.0 mm Hg (80.0-90.0) H 01/06/20 04:54 ABG HCO3 23.8 mmol/L (20.0-26.0) 01/06/20 04:54 ABG O2 Saturation 98.3 % (95.0-99.0) 01/06/20 04:54 Calcium 7.7 mg/dL (8.4-10.2) L 01/06/20 04:41 Phosphorus 3.40 mg/dL (2.5-4.5) 01/06/20 04:41 Magnesium 2.20 mg/dL (1.7-2.3) 01/06/20 04:41
--- NOTE | 2020-01-06 13:29 | Event Note ---
Date: 01/06/20 Spoke with Mother Emilia [phone] and sister Shandra [phone]. Explained in detail the events as documented and where we are now. Explained what anoxic brain damage means and that he has suffered this. Given an unknown amount of down time, his damage is very high. He will need an EEG and needs to have some form of brain test rather flow or cold calorics or apnea test to determine if he is brain . Await neurology input and they will be here tomorrow. Will discuss code status with family tomorrow on my next call. Overall prognosis is extremely poor.
[2020-01-06] MEDS ORDERED: SODIUM CHLORIDE 0.9% 1000 ML 1,000 ML IV ONE (17:00)
[2020-01-06] MEDS ORDERED: fentaNYL 100 MCG/2 ML INJ IV ONE (19:00)
[2020-01-07 04:39] LABS: ABG Base Excess -0.3 mmol/L (-2.0-3.0); ABG HCO3 23.8 mmol/L (20.0-26.0); ABG Methemoglobin 0.5 % (0.0-1.5); ABG Oxygen Saturation 97.9 % (95.0-99.0); ABG PH 7.425 pH Units (7.350-7.450); ABG PO2 107.9 mm Hg (80.0-90.0)
[2020-01-07 05:55] LABS: Basophils % (Auto) 0.3 % (0.0-1.8); Eosinophils # (Auto) 0.1 K/mm3 (0.0-0.4); Eosinophils % (Auto) 0.7 % (0.0-4.3); Hematocrit 41.2 % (35.5-45.6); Hemoglobin 13.4 gm/dl (11.8-15.2); Lymphocytes # (Auto) 1.2 K/mm3 (1.2-5.4); Lymphocytes % (Auto) 9.2 % (13.4-35.0); Mean Corpuscular HGB Conc 33 % (32-34); Mean Corpuscular Volume 92 fl (84-94); Monocytes # (Auto) 0.6 K/mm3 (0.0-0.8); Monocytes % (Auto) 4.9 % (0.0-7.3); Platelet Count 116 K/mm3 (140-440); Red Blood Count 4.45 M/mm3 (3.65-5.03); Red Cell Distribution Width 15.9 % (13.2-15.2)
[2020-01-07] MEDS: PIPERACILLIN/TAZOBACTAM 3.375 3.375 GM/50 ML BAG IV SCH (06:02)
[2020-01-07 06:21] LABS: Albumin 3.1 g/dL (3.9-5); Calcium 8.3 mg/dL (8.4-10.2)
--- NOTE | 2020-01-07 08:40 | Progress Note ---
Subjective Date of service: 01/07/20 Interval history: i Have EEG ordered and the results will be reviewed went over Dr. Bridges' notes discussed with cardiology yestedrday peognosis has not improved obviously would like to speak to family Objective - Vital Sign Vital Signs - 12hr 01/06/20 01/06/20 01/06/20 21:00 22:00 23:00 Temperature Pulse Rate 116 H 113 H 110 H Pulse Rate [ From Monitor] Respiratory 18 18 18 Rate Blood Pressure 119/74 113/68 97/68 O2 Sat by Pulse 98 98 99 Oximetry 01/06/20 01/07/20 01/07/20 23:04 00:00 00:28 Temperature 98.5 F Pulse Rate 111 H 108 H 108 H Pulse Rate [ 118 H From Monitor] Respiratory 18 18 Rate Blood Pressure 97/68 90/65 90/65 O2 Sat by Pulse 99 99 99 Oximetry 01/07/20 01/07/20 01/07/20 01:00 02:00 03:00 Temperature Pulse Rate 107 H 104 H 103 H Pulse Rate [ From Monitor] Respiratory 18 18 18 Rate Blood Pressure 96/59 97/67 97/64 O2 Sat by Pulse 98 100 99 Oximetry 01/07/20 01/07/20 01/07/20 04:00 04:25 05:00 Temperature 97.6 F Pulse Rate 101 H 101 H 99 H Pulse Rate [ 101 H From Monitor] Respiratory 18 18 Rate Blood Pressure 92/62 92/62 101/56 O2 Sat by Pulse 98 98 100 Oximetry 01/07/20 06:00 Temperature Pulse Rate 98 H Pulse Rate [ From Monitor] Respiratory 18 Rate Blood Pressure 93/58 O2 Sat by Pulse 100 Oximetry - Laboratory Findings CBC and BMP: 01/07/20 04:53 01/07/20 04:53 Abnormal Lab Findings: Abnormal Labs 01/04/20 01/04/20 01/04/20 21:25 21:25 21:25 WBC 12.1 H Hgb 11.5 L MCHC RDW Plt Count 130 L Lymph % (Auto) Lymph # [place] # Seg Neutrophils % Seg Neutrophils # 8.4 H PT 17.9 H INR 1.45 H D-Dimer > 46981 H ABG pH ABG pO2 ABG HCO3 ABG O2 Saturation ABG Base Excess ABG Hemoglobin Sodium Chloride 94.7 L Carbon Dioxide 13 L BUN Creatinine 1.9 H Glucose 281 H POC Glucose Lactic Acid Calcium 7.4 L Magnesium AST 240 H ALT 196 H Total Creatine Kinase CK-MB (CK-2) Troponin T Total Protein 6.0 L Albumin 3.7 L HDL Cholesterol Urine WBC (Auto) Plasma/Serum Alcohol 01/04/20 01/04/20 01/04/20 21:25 21:41 Unknown WBC Hgb MCHC RDW Plt Count Lymph % (Auto) Lymph # [place] # Seg Neutrophils % Seg Neutrophils # PT INR D-Dimer ABG pH 7.159 L* ABG pO2 404.4 H ABG HCO3 14.6 L ABG O2 Saturation 99.6 H ABG Base Excess -13.5 L ABG Hemoglobin 12.2 L Sodium Chloride Carbon Dioxide BUN Creatinine Glucose POC Glucose Lactic Acid Calcium Magnesium AST ALT Total Creatine Kinase CK-MB (CK-2) Troponin T Total Protein Albumin HDL Cholesterol Urine WBC (Auto) 18.0 H Plasma/Serum Alcohol 0.12 H 01/05/20 01/05/20 01/05/20 03:38 05:29 05:29 WBC 17.9 H Hgb MCHC 35 H RDW Plt Count Lymph % (Auto) 4.2 L Lymph # 0.7 L [place] # 1.2 H Seg Neutrophils % 88.9 H Seg Neutrophils # 15.9 H PT INR D-Dimer ABG pH ABG pO2 218.9 H ABG HCO3 ABG O2 Saturation 99.3 H ABG Base Excess ABG Hemoglobin Sodium Chloride Carbon Dioxide 21 L D BUN 31 H Creatinine 2.8 H Glucose 134 H POC Glucose Lactic Acid Calcium 8.3 L Magnesium AST ALT Total Creatine Kinase CK-MB (CK-2) Troponin T Total Protein Albumin HDL Cholesterol Urine WBC (Auto) Plasma/Serum Alcohol 01/05/20 01/05/20 01/05/20 05:41 05:41 13:15 WBC Hgb MCHC RDW Plt Count Lymph % (Auto) Lymph # [place] # Seg Neutrophils % Seg Neutrophils # PT INR D-Dimer ABG pH ABG pO2 ABG HCO3 ABG O2 Saturation ABG Base Excess ABG Hemoglobin Sodium Chloride Carbon Dioxide BUN Creatinine Glucose POC Glucose Lactic Acid 2.10 H* Calcium Magnesium AST ALT Total Creatine Kinase 625 H 665 H CK-MB (CK-2) 20.2 H 20.9 H Troponin T 2.990 H* D 1.930 H* D Total Protein Albumin HDL Cholesterol 68 H Urine WBC (Auto) Plasma/Serum Alcohol 01/05/20 01/06/20 01/06/20 18:49 04:41 04:41 WBC 11.1 H Hgb MCHC RDW 15.7 H Plt Count 129 L Lymph % (Auto) 6.3 L Lymph # 0.7 L [place] # Seg Neutrophils % 86.9 H Seg Neutrophils # 9.6 H PT INR D-Dimer ABG pH ABG pO2 ABG HCO3 ABG O2 Saturation ABG Base Excess ABG Hemoglobin Sodium 153 H D Chloride 112.0 H Carbon Dioxide BUN 39 H Creatinine 3.9 H Glucose 125 H POC Glucose 119 H Lactic Acid Calcium 7.7 L Magnesium AST 119 H ALT 167 H Total Creatine Kinase CK-MB (CK-2) Troponin T Total Protein Albumin 3.5 L HDL Cholesterol Urine WBC (Auto) Plasma/Serum Alcohol 01/06/20 01/07/20 01/07/20 04:54 03:55 04:53 WBC 12.8 H Hgb MCHC RDW 15.9 H Plt Count 116 L Lymph % (Auto) 9.2 L Lymph # [place] # Seg Neutrophils % 84.9 H Seg Neutrophils # 10.9 H PT INR D-Dimer ABG pH ABG pO2 118.0 H 107.9 H ABG HCO3 ABG O2 Saturation ABG Base Excess ABG Hemoglobin 13.9 L 12.5 L Sodium Chloride Carbon Dioxide BUN Creatinine Glucose POC Glucose Lactic Acid Calcium Magnesium AST ALT Total Creatine Kinase CK-MB (CK-2) Troponin T Total Protein Albumin HDL Cholesterol Urine WBC (Auto) Plasma/Serum Alcohol 01/07/20 04:53 WBC Hgb MCHC RDW Plt Count Lymph % (Auto) Lymph # [place] # Seg Neutrophils % Seg Neutrophils # PT INR D-Dimer ABG pH ABG pO2 ABG HCO3 ABG O2 Saturation ABG Base Excess ABG Hemoglobin Sodium 159 H Chloride 121.3 H Carbon Dioxide BUN 44 H Creatinine 4.8 H Glucose POC Glucose Lactic Acid Calcium 8.3 L Magnesium 2.40 H AST 47 H ALT 102 H Total Creatine Kinase CK-MB (CK-2) Troponin T Total Protein Albumin 3.1 L HDL Cholesterol Urine WBC (Auto) Plasma/Serum Alcohol
--- NOTE | 2020-01-07 09:53 | Consultation ---
I have had an opportunity to review Dr. Bridges' note from today. This patient was apparently found unresponsive. The patient had been coated after being positive for cocaine and methamphetamines. The patient had no cough or gag reflex and no corneal reflexes. CT scan showed significant brain edema with subarachnoid hemorrhage. The patient has a very poor prognosis at this point. Obviously subarachnoid hemorrhage can occur in association with amphetamine and cocaine use, but also the issue that more likely denote this was also associated with an arrest. This makes this very complicated because I do not think he has clear-cut evidence of an aneurysm. I carefully reviewed the CT scan. I do not see a focal area of aneurysm present or an AVM. Therefore, I would conclude this is a methamphetamine/cocaine induced subarachnoid hemorrhage, probably also cardiac arrest, which aggravates the problem because of brain edema. I do not find reflexes. No corneals, no gag reflex, does not move spontaneously. He is currently on a ventilator. Prognosis at this point is extremely poor. I agree with Dr. Bridges on this issue. I probably would repeat a CT scan tomorrow on Tuesday. I do not see family members to discuss with whether he was a candidate for being kept on a ventilator or whether he has a DNR, I do not have the information available yet. Certainly, he does not appear to be at this point establishing any degree of recovery. Given that issue, I certainly do not think that we obviously should press ahead with transferring him to the hospital with neurosurgical capability unless things change given his advanced state of neurological decline. JOB# [id number] JEAN-PAUL/DAVID
--- NOTE | 2020-01-07 10:19 | Progress Note ---
Assessment and Plan # Acute kidney injury: likely due to severe tubular injury in setting of hypotension, polysubstance abuse, contrast need. May have underlying CKD. At this time, he remains non-oliguric but with worsening renal function and will likely have renal failure soon. Overall very poor prognosis, unlikely to benefit from renal replacement therapy however given neurological status. Will follow up neuro and ICU recommendations and goals of care planning, no immediate indication for HD noted this AM - supportive and advance care planning per ICU, neuro - avoid nephrotoxins - renally dose meds - daily renal labs # Hypernatremia: 159 this AM from free water deficit; would start D5W for free water repletion while intubated if able # Respiratory Failure: intubated # Mild Rhabdomyolysis: had fall, NSTEMI; likely not of renal consequence # Hypotension: maintain MAP>70 as able for renal perfusion # Hypoalbuminemia: likely indicative of overall poor nutrition, prognosis Subjective Date of service: 01/07/20 Interval history: Chart reviewed. No major changes noted, patient remains with same poor neurological prognosis. Objective - Exam Narrative Exam: General: intubated. patient appears to be comatose HEENT: ET tube in place Neck: Supple Chest: coarse mechanical lung sounds Heart: Regular rate and rhythm Abdomen: Soft nontender Extremity: Minimal edema. Catheter in place draining yellow urine. Psychiatric: resting Musculoskeletal: No joint effusion noted Skin: intact - Vital Signs Vital signs: Vital Signs - 12hr 01/06/20 01/06/20 01/07/20 23:00 23:04 00:00 Temperature 98.5 F Pulse Rate 110 H 111 H 108 H Pulse Rate [ 118 H From Monitor] Respiratory 18 18 18 Rate Blood Pressure 97/68 97/68 90/65 O2 Sat by Pulse 99 99 99 Oximetry 01/07/20 01/07/20 01/07/20 00:28 01:00 02:00 Temperature Pulse Rate 108 H 107 H 104 H Pulse Rate [ From Monitor] Respiratory 18 18 Rate Blood Pressure 90/65 96/59 97/67 O2 Sat by Pulse 99 98 100 Oximetry 01/07/20 01/07/20 01/07/20 03:00 04:00 04:25 Temperature 97.6 F Pulse Rate 103 H 101 H 101 H Pulse Rate [ 101 H From Monitor] Respiratory 18 18 Rate Blood Pressure 97/64 92/62 92/62 O2 Sat by Pulse 99 98 98 Oximetry 03/30/20 03/30/20 03/30/20 05:00 06:00 07:00 Temperature Pulse Rate 99 H 98 H 98 H Pulse Rate [ From Monitor] Respiratory 18 18 18 Rate Blood Pressure 101/56 93/58 93/59 O2 Sat by Pulse 100 100 100 Oximetry 01/07/20 01/07/20 08:00 08:47 Temperature Pulse Rate 96 H 95 H Pulse Rate [ From Monitor] Respiratory 18 Rate Blood Pressure 95/54 95/54 O2 Sat by Pulse 98 99 Oximetry - Lab 01/07/20 04:53 01/07/20 04:53 Most recent lab results ABG pH 7.425 pH Units (7.350-7.450) 01/07/20 03:55 ABG pCO2 37.0 mm Hg 01/07/20 03:55 ABG pO2 107.9 mm Hg (80.0-90.0) H 01/07/20 03:55 ABG HCO3 23.8 mmol/L (20.0-26.0) 01/07/20 03:55 ABG O2 Saturation 97.9 % (95.0-99.0) 01/07/20 03:55 Calcium 8.3 mg/dL (8.4-10.2) L 01/07/20 04:53 Phosphorus 3.40 mg/dL (2.5-4.5) 01/06/20 04:41 Magnesium 2.40 mg/dL (1.7-2.3) H 01/07/20 04:53 Medications & Allergies - Medications Allergies/Adverse Reactions: Allergies No Known Allergies Allergy (Verified 01/04/20 21:59) Home Medications: Home Medications Medication Instructions Recorded Confirmed Last Taken Type Unobtainable 01/05/20 01/05/20 Unknown History Active Medications: Generic Name Dose Route Start Last Admin Trade Name Freq PRN Reason Stop Dose Admin Acetaminophen 650 mg 01/05/20 05:09 Tylenol PO Q4H PRN Pain MILD(1-3)/Fever >100.5/PACHECO Acetaminophen 650 mg 01/05/20 05:09 Tylenol NC Q4H PRN Pain MILD(1-3)/Fever >100.5/PACHECO Famotidine 20 mg 01/07/20 10:00 Pepcid IV DAILY ROWDY Fentanyl 50 mcg 01/04/20 23:16 01/04/20 23:43 Sublimaze IV 50 mcg Q10MIN PRN Administration ANALGESIA Norepinephrine 4 mg in 250 mls @ 18.75 mls/hr 01/04/20 22:00 01/05/20 11:40 Levophed Drip 4 Mg/Ns 250 Ml IV 0 mcg/min TITR ROWDY 0 mls/hr Titration Protocol 5 MCG/MIN Fentanyl Citrate 2,000 mcg in 100 mls @ 4.035 mls/hr 01/04/20 23:45 01/05/20 18:23 Fentanyl Drip Premix IV 0 mcg/kg/hr TITR ROWDY 0 mls/hr Titration Protocol 1 MCG/KG/HR Lorazepam 2 mg 01/05/20 10:38 Ativan IV Q4H PRN Agitation Ondansetron HCl 4 mg 01/05/20 05:09 Zofran IV Q8H PRN Nausea And Vomiting Sodium Chloride 10 ml 01/05/20 10:00 01/07/20 07:59 Sodium Chloride Flush Syringe 10 Ml IV Not Given BID ROWDY Sodium Chloride 10 ml 01/05/20 05:09 Sodium Chloride Flush Syringe 10 Ml IV PRN PRN LINE FLUSH
--- NOTE | 2020-01-07 10:54 | Progress Note ---
Assessment and Plan SAH, diffuse, cerebral edema diffuse, concern for brain no signs of arousal no signs of life warm no brain stem reflexes EEG pending : will read now cold caloric testing was ; non responsive discussed case w family , they would like to come in before removing life support 48 h after last sedative will be 01/07 at 1853 Subjective Date of service: 01/07/20 Principal diagnosis: coma Interval history: 49 y M arrived found down , PEA arrest, diffuse SAH cerebral edema, intubated/vent not sedated, no signs of life, chart reviewed, no family at bedside, asked to see pt for eval of neuro exam/brain no myoclonus, sz no fever no spont movements no posturing no gag cough no shivering last sedative : talked to PHARM fentanyl drip 01/04 755am last given fentanyl 2 cc 01/04 2344 last given fantanyl 50 mcg= 1 cc 01/[address] head diffuse SAH w cerebral edema understand from chart : SAH, cardiac arrest, , PEA arrest, cocaine/meth positive / alcohol intoxication not candidate for neurosurg intervention conservative management Objective - Exam Narrative Exam: coma intubated no sedation no arousal to verbal tactile nox stim no corneals b/l no dolls b/l no cough no gag no grimace to nox stim to nares and brow b/l neck supple pupils 5mm non reactive b/l no forced gaze limbs tone is down no extra movements no w/d to nox stim to all distal limbs no spont movements abd soft R face abrasion COLD caloric testing b/l ears x 2min w attending and nursing in the room, test was neg, no movements of eyes L or R - Vital Sign Vital Signs - 12hr 01/06/20 01/06/20 01/07/20 23:00 23:04 00:00 Temperature 98.5 F Pulse Rate 110 H 111 H 108 H Pulse Rate [ 118 H From Monitor] Respiratory 18 18 18 Rate Blood Pressure 97/68 97/68 90/65 O2 Sat by Pulse 99 99 99 Oximetry 01/07/20 01/07/20 01/07/20 00:28 01:00 02:00 Temperature Pulse Rate 108 H 107 H 104 H Pulse Rate [ From Monitor] Respiratory 18 18 Rate Blood Pressure 90/65 96/59 97/67 O2 Sat by Pulse 99 98 100 Oximetry 01/07/20 01/07/2020 03:00 04:00 04:25 Temperature 97.6 F Pulse Rate 103 H 101 H 101 H Pulse Rate [ 101 H From Monitor] Respiratory 18 18 Rate Blood Pressure 97/64 92/62 92/62 O2 Sat by Pulse 99 98 98 Oximetry 01/07/20 01/07/20 01/07/20 05:00 06:00 07:00 Temperature Pulse Rate 99 H 98 H 98 H Pulse Rate [ From Monitor] Respiratory 18 18 18 Rate Blood Pressure 101/56 93/58 93/59 O2 Sat by Pulse 100 100 100 Oximetry 01/07/20 01/07/20 08:00 08:47 Temperature Pulse Rate 96 H 95 H Pulse Rate [ From Monitor] Respiratory 18 Rate Blood Pressure 95/54 95/54 O2 Sat by Pulse 98 99 Oximetry - Laboratory Findings CBC and BMP: 01/07/20 04:53 01/07/20 04:53 Abnormal Lab Findings: Abnormal Labs 01/04/20 01/04/20 01/04/20 21:25 21:25 21:25 WBC 12.1 H Hgb 11.5 L MCHC RDW Plt Count 130 L Lymph % (Auto) Lymph # [place] # Seg Neutrophils % Seg Neutrophils # 8.4 H PT 17.9 H INR 1.45 H D-Dimer > 35898 H ABG pH ABG pO2 ABG HCO3 ABG O2 Saturation ABG Base Excess ABG Hemoglobin Sodium Chloride 94.7 L Carbon Dioxide 13 L BUN Creatinine 1.9 H Glucose 281 H POC Glucose Lactic Acid Calcium 7.4 L Magnesium AST 240 H ALT 196 H Total Creatine Kinase CK-MB (CK-2) Troponin T Total Protein 6.0 L Albumin 3.7 L HDL Cholesterol Urine WBC (Auto) Plasma/Serum Alcohol 01/04/20 01/04/20 01/04/20 21:25 21:41 Unknown WBC Hgb MCHC RDW Plt Count Lymph % (Auto) Lymph # [place] # Seg Neutrophils % Seg Neutrophils # PT INR D-Dimer ABG pH 7.159 L* ABG pO2 404.4 H ABG HCO3 14.6 L ABG O2 Saturation 99.6 H ABG Base Excess -13.5 L ABG Hemoglobin 12.2 L Sodium Chloride Carbon Dioxide BUN Creatinine Glucose POC Glucose Lactic Acid Calcium Magnesium AST ALT Total Creatine Kinase CK-MB (CK-2) Troponin T Total Protein Albumin HDL Cholesterol Urine WBC (Auto) 18.0 H Plasma/Serum Alcohol 0.12 H 01/05/20 01/05/20 01/05/20 03:38 05:29 05:29 WBC 17.9 H Hgb MCHC 35 H RDW Plt Count Lymph % (Auto) 4.2 L Lymph # 0.7 L [place] # 1.2 H Seg Neutrophils % 88.9 H Seg Neutrophils # 15.9 H PT INR D-Dimer ABG pH ABG pO2 218.9 H ABG HCO3 ABG O2 Saturation 99.3 H ABG Base Excess ABG Hemoglobin Sodium Chloride Carbon Dioxide 21 L D BUN 31 H Creatinine 2.8 H Glucose 134 H POC Glucose Lactic Acid Calcium 8.3 L Magnesium AST ALT Total Creatine Kinase CK-MB (CK-2) Troponin T Total Protein Albumin HDL Cholesterol Urine WBC (Auto) Plasma/Serum Alcohol 01/05/20 01/05/20 01/05/20 05:41 05:41 13:15 WBC Hgb MCHC RDW Plt Count Lymph % (Auto) Lymph # [place] # Seg Neutrophils % Seg Neutrophils # PT INR D-Dimer ABG pH ABG pO2 ABG HCO3 ABG O2 Saturation ABG Base Excess ABG Hemoglobin Sodium Chloride Carbon Dioxide BUN Creatinine Glucose POC Glucose Lactic Acid 2.10 H* Calcium Magnesium AST ALT Total Creatine Kinase 625 H 665 H CK-MB (CK-2) 20.2 H 20.9 H Troponin T 2.990 H* D 1.930 H* D Total Protein Albumin HDL Cholesterol 68 H Urine WBC (Auto) Plasma/Serum Alcohol 01/05/20 01/06/20 01/06/20 18:49 04:41 04:41 WBC 11.1 H Hgb MCHC RDW 15.7 H Plt Count 129 L Lymph % (Auto) 6.3 L Lymph # 0.7 L [place] # Seg Neutrophils % 86.9 H Seg Neutrophils # 9.6 H PT INR D-Dimer ABG pH ABG pO2 ABG HCO3 ABG O2 Saturation ABG Base Excess ABG Hemoglobin Sodium 153 H D Chloride 112.0 H Carbon Dioxide BUN 39 H Creatinine 3.9 H Glucose 125 H POC Glucose 119 H Lactic Acid Calcium 7.7 L Magnesium AST 119 H ALT 167 H Total Creatine Kinase CK-MB (CK-2) Troponin T Total Protein Albumin 3.5 L HDL Cholesterol Urine WBC (Auto) Plasma/Serum Alcohol 01/06/20 01/07/20 01/07/20 04:54 03:55 04:53 WBC 12.8 H Hgb MCHC RDW 15.9 H Plt Count 116 L Lymph % (Auto) 9.2 L Lymph # [place] # Seg Neutrophils % 84.9 H Seg Neutrophils # 10.9 H PT INR D-Dimer ABG pH ABG pO2 118.0 H 107.9 H ABG HCO3 ABG O2 Saturation ABG Base Excess ABG Hemoglobin 13.9 L 12.5 L Sodium Chloride Carbon Dioxide BUN Creatinine Glucose POC Glucose Lactic Acid Calcium Magnesium AST ALT Total Creatine Kinase CK-MB (CK-2) Troponin T Total Protein Albumin HDL Cholesterol Urine WBC (Auto) Plasma/Serum Alcohol 01/07/20 04:53 WBC Hgb MCHC RDW Plt Count Lymph % (Auto) Lymph # [place] # Seg Neutrophils % Seg Neutrophils # PT INR D-Dimer ABG pH ABG pO2 ABG HCO3 ABG O2 Saturation ABG Base Excess ABG Hemoglobin Sodium 159 H Chloride 121.3 H Carbon Dioxide BUN 44 H Creatinine 4.8 H Glucose POC Glucose Lactic Acid Calcium 8.3 L Magnesium 2.40 H AST 47 H ALT 102 H Total Creatine Kinase CK-MB (CK-2) Troponin T Total Protein Albumin 3.1 L HDL Cholesterol Urine WBC (Auto) Plasma/Serum Alcohol
[2020-01-07] MEDS: FAMOTIDINE 20 MG/2 ML INJ IV SCH (11:05)
--- NOTE | 2020-01-07 11:48 | Event Note ---
Date: 01/07/20 Flat lined EEG. Patient not responsive to cold calorics. Neurology spoke with family this am and explained in detail current state. Family understands and would like to see patient prior to removal of endotracheal tube. Have spoken with ICU administrative secretary as well as charge. Will arrange for one at a time visits with the only exception that someone accompany the mother with a mask. Asked that no one come visit who has any upper respiratory issues or fever. Sister expressed understanding. Gave them direct number to ICU. Will sign withdrawal of care sheet and ask that IMS sign as well.
--- NOTE | 2020-01-07 12:19 | Progress Note ---
Assessment and Plan S/p cardiac arrest Found in parking lot, unknown down time, initial rhythm unknown tte reveals preserved lv fxn ecg--> sr w/o acute changes Acute respiratory failure intubated pulmonary following NSTEMI tte reveals preserved lv fxn ecg--> sr w/o acute changes. Hector trending downwards. no antiplatelets or anticoagulants in setting of SAH. no BB in setting of hypotension. Anoxic brain injury Per critical care team, EEG from this AM flat lined, patient not responsive to cold calorics. Concern for brain per neurology. Neurology discussing withdrawal of care with pt's family. Diffuse SAH w/ cerebral edema prolonged downtime neuro following [facility] Nephrology following. Hypotension Requiring vasopressors. wean as tolerated. Hypernatremia Acute transaminitis F/u LFTs. No statin at this time. Polysubstatnce abuse Cont supportive care from a cardiac perspective. Overall poor prognosis given neurological status. The patient has been seen in conjunction with Dr. Schwartz who agrees with the assessment and plan of care. Subjective Date of service: 01/07/20 Principal diagnosis: coma Interval history: pt remains intubated, not sedated, nonresponsive, in SR on tele. no family at bedside. Objective Last Vital Signs Temp 97.6 F 01/07/20 04:00 Pulse 93 H 01/07/20 10:00 Resp 18 01/07/20 10:00 BP 84/57 01/07/20 10:00 Pulse Ox 99 01/07/20 10:00 - Physical Examination General: Other (intubated, nonresponsive) Cardiac: Positive: Reg Rate and Rhythm, S1/S2 Lungs: Positive: Decreased Breath Sounds, Oxygen, Ventilated Respirations Neuro: Positive: Other (intubated, nonresponsive) Extremities: Absent: edema - Labs and Meds Cardiac Enzymes 01/07/20 Range/Units 04:53 AST 47 H (5-40) units/L CBC 01/07/20 Range/Units 04:53 WBC 12.8 H (4.5-11.0) K/mm3 RBC 4.45 (3.65-5.03) M/mm3 Hgb 13.4 (11.8-15.2) gm/dl Hct 41.2 (35.5-45.6) % Plt Count 116 L (140-440) K/mm3 Lymph # 1.2 (1.2-5.4) K/mm3 [place] # 0.6 (0.0-0.8) K/mm3 Eos # 0.1 (0.0-0.4) K/mm3 Baso # 0.0 (0.0-0.1) K/mm3 Comprehensive Metabolic Panel 01/07/20 Range/Units 04:53 Sodium 159 H (137-145) mmol/L Potassium 4.5 (3.6-5.0) mmol/L Chloride 121.3 H (98-107) mmol/L Carbon Dioxide 24 (22-30) mmol/L BUN 44 H (9-20) mg/dL Creatinine 4.8 H (0.8-1.5) mg/dL Glucose 91 (75-100) mg/dL Calcium 8.3 L (8.4-10.2) mg/dL AST 47 H (5-40) units/L ALT 102 H (7-56) units/L Alkaline Phosphatase 70 (35-129) units/L Total Protein 6.3 (6.3-8.2) g/dL Albumin 3.1 L (3.9-5) g/dL - Imaging and Cardiology EKG: report reviewed, image reviewed Echo: report reviewed - Telemetry EKG Rhythm: Sinus Rhythm
--- NOTE | 2020-01-07 12:42 | Electroencephalogram Report ---
Electroencephalogram EEG Date of exam: 01/07/20 History: 49 yo M w SAH/cerebral edema both diffuse, PEA arreast, intubated, no sedatives or AED, exam consistent w brain , cold calorics no response, 30 min brain EEG at bedside coma, no braim stem reflexes Impression: This EEG is consistent with electrocerebral silence, correlating with patient's exam there is very high suspicion for brain . Description: This EEG was acquired with electrodes placed according to the international 10/20 electrode placement system. No electrocerebral activity was appreciated, sensitivity down to 2 microvolts/mm and 1-30 Hz frequency filter. No reactivity to tactile, auditory or visual stimulus; eye opening and closing was not available. All of this EEG was flat and featureless, electrode artifact/pop seen L>R. Hyperventilation and photic stimulation was not applicable in this setting. Interpretation: this is an abnormal coma EE. electrocerebral silence
--- NOTE | 2020-01-07 14:39 | Progress Note ---
Subjective Date of service: 01/07/20 Principal diagnosis: coma Interval history: follow up note absent Doll's eyes absent pupillary reaction no cough no gag reflex no spontanous movemnts no movements to pain no respiratory effort faccid and hypotonic clinically no evidence of any neurological recovery given absense of neuro reflexes prognosis for recovery is nil based on the third sequensual exam would be in favor of discussing with family removal of life support ( agree with the dictated EEG report) one clinical point is the use of cocaine/ meth. alcohol would not expected to suppress tghe EEG or clinical exam spoke with social and political studies professor on floor Objective - Vital Sign Vital Signs - 12hr 01/07/20 01/07/20 01/07/20 03:00 04:00 04:25 Temperature 97.6 F Pulse Rate 103 H 101 H 101 H Pulse Rate [ 101 H From Monitor] Respiratory 18 18 Rate Blood Pressure 97/64 92/62 92/62 O2 Sat by Pulse 99 98 98 Oximetry 01/07/20 01/07/20 01/07/20 05:00 06:00 07:00 Temperature Pulse Rate 99 H 98 H 98 H Pulse Rate [ From Monitor] Respiratory 18 18 18 Rate Blood Pressure 101/56 93/58 93/59 O2 Sat by Pulse 100 100 100 Oximetry 01/07/20 01/07/20 01/07/20 08:00 08:47 09:00 Temperature 97.6 F Pulse Rate 96 H 95 H 93 H Pulse Rate [ From Monitor] Respiratory 18 18 Rate Blood Pressure 95/54 95/54 98/59 O2 Sat by Pulse 98 99 100 Oximetry 01/07/20 01/07/20 01/07/20 10:00 11:00 12:00 Temperature 97.6 F Pulse Rate 93 H 92 H 91 H Pulse Rate [ From Monitor] Respiratory 18 18 18 Rate Blood Pressure 84/57 88/57 97/59 O2 Sat by Pulse 99 100 99 Oximetry 01/07/20 13:00 Temperature Pulse Rate 90 Pulse Rate [ From Monitor] Respiratory 18 Rate Blood Pressure 92/50 O2 Sat by Pulse 99 Oximetry - Laboratory Findings CBC and BMP: 01/07/20 04:53 01/07/20 04:53 Abnormal Lab Findings: Abnormal Labs 01/04/20 01/04/20 01/04/20 21:25 21:25 21:25 WBC 12.1 H Hgb 11.5 L MCHC RDW Plt Count 130 L Lymph % (Auto) Lymph # Bent # Seg Neutrophils % Seg Neutrophils # 8.4 H PT 17.9 H INR 1.45 H D-Dimer > 75683 H ABG pH ABG pO2 ABG HCO3 ABG O2 Saturation ABG Base Excess ABG Hemoglobin Sodium Chloride 94.7 L Carbon Dioxide 13 L BUN Creatinine 1.9 H Glucose 281 H POC Glucose Lactic Acid Calcium 7.4 L Magnesium AST 240 H ALT 196 H Total Creatine Kinase CK-MB (CK-2) Troponin T Total Protein 6.0 L Albumin 3.7 L HDL Cholesterol Urine WBC (Auto) Plasma/Serum Alcohol 01/04/20 01/04/20 01/04/20 21:25 21:41 Unknown WBC Hgb MCHC RDW Plt Count Lymph % (Auto) Lymph # Bent # Seg Neutrophils % Seg Neutrophils # PT INR D-Dimer ABG pH 7.159 L* ABG pO2 404.4 H ABG HCO3 14.6 L ABG O2 Saturation 99.6 H ABG Base Excess -13.5 L ABG Hemoglobin 12.2 L Sodium Chloride Carbon Dioxide BUN Creatinine Glucose POC Glucose Lactic Acid Calcium Magnesium AST ALT Total Creatine Kinase CK-MB (CK-2) Troponin T Total Protein Albumin HDL Cholesterol Urine WBC (Auto) 18.0 H Plasma/Serum Alcohol 0.12 H 01/05/20 01/05/20 01/05/20 03:38 05:29 05:29 WBC 17.9 H Hgb MCHC 35 H RDW Plt Count Lymph % (Auto) 4.2 L Lymph # 0.7 L Bent # 1.2 H Seg Neutrophils % 88.9 H Seg Neutrophils # 15.9 H PT INR D-Dimer ABG pH ABG pO2 218.9 H ABG HCO3 ABG O2 Saturation 99.3 H ABG Base Excess ABG Hemoglobin Sodium Chloride Carbon Dioxide 21 L D BUN 31 H Creatinine 2.8 H Glucose 134 H POC Glucose Lactic Acid Calcium 8.3 L Magnesium AST ALT Total Creatine Kinase CK-MB (CK-2) Troponin T Total Protein Albumin HDL Cholesterol Urine WBC (Auto) Plasma/Serum Alcohol 01/05/20 01/05/20 01/05/20 05:41 05:41 13:15 WBC Hgb MCHC RDW Plt Count Lymph % (Auto) Lymph # Bent # Seg Neutrophils % Seg Neutrophils # PT INR D-Dimer ABG pH ABG pO2 ABG HCO3 ABG O2 Saturation ABG Base Excess ABG Hemoglobin Sodium Chloride Carbon Dioxide BUN Creatinine Glucose POC Glucose Lactic Acid 2.10 H* Calcium Magnesium AST ALT Total Creatine Kinase 625 H 665 H CK-MB (CK-2) 20.2 H 20.9 H Troponin T 2.990 H* D 1.930 H* D Total Protein Albumin HDL Cholesterol 68 H Urine WBC (Auto) Plasma/Serum Alcohol 01/05/20 01/06/20 01/06/20 18:49 04:41 04:41 WBC 11.1 H Hgb MCHC RDW 15.7 H Plt Count 129 L Lymph % (Auto) 6.3 L Lymph # 0.7 L Bent # Seg Neutrophils % 86.9 H Seg Neutrophils # 9.6 H PT INR D-Dimer ABG pH ABG pO2 ABG HCO3 ABG O2 Saturation ABG Base Excess ABG Hemoglobin Sodium 153 H D Chloride 112.0 H Carbon Dioxide BUN 39 H Creatinine 3.9 H Glucose 125 H POC Glucose 119 H Lactic Acid Calcium 7.7 L Magnesium AST 119 H ALT 167 H Total Creatine Kinase CK-MB (CK-2) Troponin T Total Protein Albumin 3.5 L HDL Cholesterol Urine WBC (Auto) Plasma/Serum Alcohol 01/06/20 01/07/20 01/07/20 04:54 03:55 04:53 WBC 12.8 H Hgb MCHC RDW 15.9 H Plt Count 116 L Lymph % (Auto) 9.2 L Lymph # Bent # Seg Neutrophils % 84.9 H Seg Neutrophils # 10.9 H PT INR D-Dimer ABG pH ABG pO2 118.0 H 107.9 H ABG HCO3 ABG O2 Saturation ABG Base Excess ABG Hemoglobin 13.9 L 12.5 L Sodium Chloride Carbon Dioxide BUN Creatinine Glucose POC Glucose Lactic Acid Calcium Magnesium AST ALT Total Creatine Kinase CK-MB (CK-2) Troponin T Total Protein Albumin HDL Cholesterol Urine WBC (Auto) Plasma/Serum Alcohol 01/07/20 04:53 WBC Hgb MCHC RDW Plt Count Lymph % (Auto) Lymph # Bent # Seg Neutrophils % Seg Neutrophils # PT INR D-Dimer ABG pH ABG pO2 ABG HCO3 ABG O2 Saturation ABG Base Excess ABG Hemoglobin Sodium 159 H Chloride 121.3 H Carbon Dioxide BUN 44 H Creatinine 4.8 H Glucose POC Glucose Lactic Acid Calcium 8.3 L Magnesium 2.40 H AST 47 H ALT 102 H Total Creatine Kinase CK-MB (CK-2) Troponin T Total Protein Albumin 3.1 L HDL Cholesterol Urine WBC (Auto) Plasma/Serum Alcohol
[2020-01-07] MEDS: NORepinephrine/NS 4 MG-250 ML 4 MG/250 ML BAG IV SCH (16:40)
--- NOTE | 2020-01-07 17:09 | Progress Note ---
Assessment and Plan Assessment and plan: --Diffuse SAH /diffuse cerebral edema neuro evaluation noted and appreciated EEG findings reviewed Electrocerebral silence per neurology Neurologist extensively discussed with the family members Family Decided to withdraw care and extubate the patient Waiting for the family members to arrive --Acute diffuse subarachnoid hemorrhage with cerebral edema; As per notes ER and admitting physician tried to transfer the patient to neurosurgical services at [facility], no surgical intervention advised, Unable to accept the transfer Neurology evaluated the patient, evaluating for brain --Acute metabolic encephalopathy; Due to subarachnoid hemorrhage and multiple other medical issues --Acute hypoxic respiratory failure; Requiring intubation, on ventilatory support. Pulmonary critical following --Outside the hospital cardiac arrest;Refer to EMS note for details --Non-ST elevation [place]; Cardiology following --Hypotension ; on Levophed per protocol --Acute kidney injury; due to ATN, worsening renal function Nephrology following --Acute liver failure; transaminases trending down --Leukocytosis/urinary tract infection Empiric antibiotics, follow cultures --Lactic acidosis; probably secondary to UTI --Polysubstance abuse; Drug screen positive for cocaine and amphetamines --DVT prophylaxis; SCDs No pharmacologic anticoagulation due to subarachnoid hemorrhage --Full CODE STATUS Patient is critically ill with multiple serious medical problems, With very poor prognosis. Neurology discussed extensively with the family members, neuro work-up findings Family decided to withdraw care, awaiting for family members to arrive to withdraw We will closely monitor and adjust the management as needed Critical care time 40 minutes History Interval history: Patient seen and examined at the bedside Patient's chart and overnight events, consultants evaluations reviewed Patient remains unresponsive Intubated on ventilatory support Vital signs noted Hospitalist Physical - Constitutional Vitals: Temp Pulse Resp BP Pulse Ox 98.1 F 86 18 79/52 100 01/07/20 16:00 01/07/20 16:00 01/07/20 16:00 01/07/20 16:00 01/07/20 16:00 General appearance: Present: well-nourished, other (Unresponsive, intubated on vent, absent corneal, gag, pupillary reflexes) - EENT Eyes: Present: PERRL (Absent pupillary and corneal reflexes) - Neck Neck: Present: supple - Respiratory Respiratory: bilateral: CTA, diminished, rhonchi, wheezing - Cardiovascular Rhythm: regular Heart Sounds: Present: S1 & S2 - Extremities Extremities: no ischemia, No edema - Abdominal General gastrointestinal: soft, non-distended, normal bowel sounds - Integumentary Integumentary: Present: clear, warm - Psychiatric Psychiatric: other (Unresponsive) - Neurologic Neurologic: other (Unresponsive[check neurologist exam]) Results - Labs CBC & Chem 7: 01/07/20 04:53 01/07/20 04:53 Labs: Laboratory Last Values WBC 12.8 K/mm3 (4.5-11.0) H 01/07/20 04:53 RBC 4.45 M/mm3 (3.65-5.03) 01/07/20 04:53 Hgb 13.4 gm/dl (11.8-15.2) 01/07/20 04:53 Hct 41.2 % (35.5-45.6) 01/07/20 04:53 MCV 92 fl (84-94) 01/07/20 04:53 MCH 30 pg (28-32) 01/07/20 04:53 MCHC 33 % (32-34) 01/07/20 04:53 RDW 15.9 % (13.2-15.2) H 01/07/20 04:53 Plt Count 116 K/mm3 (140-440) L 01/07/20 04:53 Lymph % (Auto) 9.2 % (13.4-35.0) L 01/07/20 04:53 [place] % (Auto) 4.9 % (0.0-7.3) 01/07/20 04:53 Eos % (Auto) 0.7 % (0.0-4.3) 01/07/20 04:53 Baso % (Auto) 0.3 % (0.0-1.8) 01/07/20 04:53 Lymph # 1.2 K/mm3 (1.2-5.4) 01/07/20 04:53 [place] # 0.6 K/mm3 (0.0-0.8) 01/07/20 04:53 Eos # 0.1 K/mm3 (0.0-0.4) 01/07/20 04:53 Baso # 0.0 K/mm3 (0.0-0.1) 01/07/20 04:53 Seg Neutrophils % 84.9 % (40.0-70.0) H 01/07/20 04:53 Seg Neutrophils # 10.9 K/mm3 (1.8-7.7) H 01/07/20 04:53 PT 17.9 Sec. (12.2-14.9) H 01/04/20 21:25 INR 1.45 (0.87-1.13) H 01/04/20 21:25 APTT 36.0 Sec. (24.2-36.6) 01/04/20 21:25 D-Dimer > 30850 ng/mlDDU (0-234) H 01/04/20 21:25 ABG pH 7.425 pH Units (7.350-7.450) 01/07/20 03:55 ABG pCO2 37.0 mm Hg 01/07/20 03:55 ABG pO2 107.9 mm Hg (80.0-90.0) H 01/07/20 03:55 ABG HCO3 23.8 mmol/L (20.0-26.0) 01/07/20 03:55 ABG O2 Saturation 97.9 % (95.0-99.0) 01/07/20 03:55 ABG O2 Content 17.1 (0.0-44) 01/07/20 03:55 ABG Base Excess -0.3 mmol/L (-2.0-3.0) 01/07/20 03:55 ABG Hemoglobin 12.5 gm/dl (14.0-18.0) L 01/07/20 03:55 ABG Carboxyhemoglobin 1.1 % (0.0-5.0) 01/07/20 03:55 ABG Methemoglobin 0.5 % (0.0-1.5) 01/07/20 03:55 Oxyhemoglobin 96.4 % (95.0-99.0) 01/07/20 03:55 FiO2 30 % 01/07/20 03:55 Sodium 159 mmol/L (137-145) H 01/07/20 04:53 Potassium 4.5 mmol/L (3.6-5.0) 01/07/20 04:53 Chloride 121.3 mmol/L (98-107) H 01/07/20 04:53 Carbon Dioxide 24 mmol/L (22-30) 01/07/20 04:53 Anion Gap 18 mmol/L 01/07/20 04:53 BUN 44 mg/dL (9-20) H 01/07/20 04:53 Creatinine 4.8 mg/dL (0.8-1.5) H 01/07/20 04:53 Estimated GFR 16 ml/min 01/07/20 04:53 BUN/Creatinine Ratio 9 % 01/07/20 04:53 Glucose 91 mg/dL (75-100) 01/07/20 04:53 POC Glucose 96 (70-105) 01/06/20 18:06 Lactic Acid 2.10 mmol/L (0.7-2.0) H* 01/05/20 05:41 Calcium 8.3 mg/dL (8.4-10.2) L 01/07/20 04:53 Phosphorus 3.40 mg/dL (2.5-4.5) 01/06/20 04:41 Magnesium 2.40 mg/dL (1.7-2.3) H 01/07/20 04:53 Total Bilirubin 0.30 mg/dL (0.1-1.2) 01/07/20 04:53 AST 47 units/L (5-40) H 01/07/20 04:53 ALT 102 units/L (7-56) H 01/07/20 04:53 Alkaline Phosphatase 70 units/L (35-129) 01/07/20 04:53 Total Creatine Kinase 665 units/L (55-170) H 01/05/20 13:15 CK-MB (CK-2) 20.9 ng/mL (0.0-4.0) H 01/05/20 13:15 CK-MB (CK-2) Rel Index 3.1 (0-4) 01/05/20 13:15 Troponin T 1.930 ng/mL (0.00-0.029) H* D 01/05/20 13:15 Total Protein 6.3 g/dL (6.3-8.2) 01/07/20 04:53 Albumin 3.1 g/dL (3.9-5) L 01/07/20 04:53 Albumin/Globulin Ratio 1.0 % 01/07/20 04:53 Triglycerides 97 mg/dL (2-149) 01/05/20 05:41 Cholesterol 119 mg/dL (50-199) 01/05/20 05:41 LDL Cholesterol Direct 50 mg/dL (50-130) 01/05/20 05:41 HDL Cholesterol 68 mg/dL (40-59) H 01/05/20 05:41 Cholesterol/HDL Ratio 1.75 % 01/05/20 05:41 Urine Color Yellow (Yellow) 01/04/20 Unknown Urine Turbidity Cloudy (Clear) 01/04/20 Unknown Urine pH 6.0 (5.0-7.0) 01/04/20 Unknown Ur Specific [place] 1.019 (1.003-1.030) 01/04/20 Unknown Urine Protein 100 mg/dl mg/dL (Negative) 01/04/20 Unknown Urine Glucose (UA) Neg mg/dL (Negative) 01/04/20 Unknown Urine Ketones Neg mg/dL (Negative) 01/04/20 Unknown Urine Blood Neg (Negative) 01/04/20 Unknown Urine Nitrite Neg (Negative) 01/04/20 Unknown Urine Bilirubin Neg (Negative) 01/04/20 Unknown Urine Urobilinogen < 2.0 mg/dL (<2.0) 01/04/20 Unknown Ur Leukocyte Esterase Neg (Negative) 01/04/20 Unknown Urine WBC (Auto) 18.0 /HPF (0.0-6.0) H 01/04/20 Unknown Urine RBC (Auto) 24.0 /HPF (0.0-6.0) 01/04/20 Unknown Urine Bacteria (Auto) 4+ /HPF (Negative) 01/04/20 Unknown Urine WBC Clumps 2+ /HPF 01/04/20 Unknown Urine Mucus 1+ /HPF 01/04/20 Unknown Urine Yeast (Budding) 2+ /HPF 01/04/20 Unknown Urine Sperm 3+ /HPF (HOSPICE ART THERAPIST) 01/04/20 Unknown Urine Opiates Screen Presumptive negative 01/04/20 Unknown Urine Methadone Screen Presumptive negative 01/04/20 Unknown Ur Barbiturates Screen Presumptive negative 01/04/20 Unknown Ur Phencyclidine Scrn Presumptive negative 01/04/20 Unknown Ur Amphetamines Screen Presumptive positive 01/04/20 Unknown U Benzodiazepines Scrn Presumptive negative 01/04/20 Unknown Urine Cocaine Screen Presumptive positive 01/04/20 Unknown U Marijuana (THC) Screen Presumptive negative 01/04/20 Unknown Drugs of Abuse Note Disclamer 01/04/20 Unknown Plasma/Serum Alcohol 0.12 % (0-0.07) H 01/04/20 21:25 Microbiology: Microbiology 01/04/20 21:41 Tracheal Aspirate Sputum Culture - Final 01/04/20 Unknown Urine,Clean Catch Urine Culture - Final NO GROWTH AFTER 48 HOURS 01/05/20 06:00 Peripheral/Venous Blood Culture - Preliminary NO GROWTH AFTER 48 HOURS 01/05/20 05:41 Peripheral/Venous Blood Culture - Preliminary NO GROWTH AFTER 48 HOURS - Diagnostic Impressions Diagnostic Impressions: Echocardiogram 01/05/20 10:51 Transthoracic Echocardiogram Indication: Cardiac Arrest BP: 151/112 Conclusions *Moderate concentric left ventricular hypertrophy is observed. *The estimated ejection fraction is 55-60%. *The pericardium appears normal. Findings Procedure Info: The study quality is fair. Left Ventricle: The left ventricular chamber size is normal. Moderate concentric left ventricular hypertrophy is observed. The estimated ejection fraction is 55-60%. Normal left ventricular diastolic filling is observed. Left Atrium: The left atrium is normal in size with no visual thrombus identified. Right Ventricle: The right ventricular chamber size and systolic function are within normal limits. Right Atrium: The right atrium appears normal. Aortic Valve: Mild aortic cusp sclerosis is present. There is no evidence of aortic regurgitation. There is no evidence of aortic stenosis. Mitral Valve: The mitral valve leaflets appear normal. There is trace of mitral regurgitation. There is no evidence of mitral stenosis. Tricuspid Valve: The tricuspid valve appears normal in structure and function. The tricuspid valve leaflets are normal. There is trace tricuspid regurgitation. There is no tricuspid stenosis. Pulmonic Valve: The pulmonic valve is not well visualized. There is no pulmonic stenosis. Pericardium: The pericardium appears normal. Aorta: The aorta appears normal. Pulmonary Artery: The main pulmonary artery is not well visualized. Venous: The inferior vena cava appears normal in size. Measurements Chambers 2D Name Value Normal Range IVSd (2D) 1.21 cm (0.6 - 1.1) LVPWd (2D) 1.22 cm (0.6 - 1.1) LVIDd (2D) 3.85 cm (3.7 - 5.6) LVIDs (2D) 2.63 cm (2 - 3.8) LV FS (2D) 31.61 % - EF Teichholz (2D) 60.29 % - Ao root diameter (2D) 2.75 cm (2 - 3.7) Volumes/Mass Name Value Normal Range LA ESV SP 4CH (A/L) 23.17 ml - LA ESV SP 2CH (A/L) 28.16 ml - LA ESV BP (A/L) 26.18 ml - LA ESV BP (A/L) index 13.09 ml/m2 - LA ESV SP 4CH (MOD) 21.42 ml - LA ESV SP 2CH (MOD) 25.38 ml - LA ESV BP (MOD) 23.87 ml - LA ESV BP (MOD) index 11.94 ml/m2 - LV EDV SP 4CH (MOD) 49.45 ml - LV ESV SP 4CH (MOD) 21.01 ml - EF SP 4CH (MOD) 57.51 % - LV EDV SP 2CH (MOD) 55.8 ml - LV ESV SP 2CH (MOD) 21.91 ml - EF SP 2CH (MOD) 60.73 % - LV EDV BP 56.09 ml - LV ESV BP 22.85 ml - BP EF (MOD) 59.27 % - Diastolic/Systolic Function Name Value Normal Range MV E-wave Vmax 0.4 m/sec - MV deceleration time 149.61 msec - MV A-wave Vmax 0.42 m/sec - MV E:A ratio 0.94 ratio - Aortic Valve Name Value Normal Range AV Vmax 0.91 m/sec - AV VTI 11.4 cm - AV peak gradient 3.32 mmHg - AV mean gradient 1.71 mmHg - LVOT diameter 1.9 cm - LVOT Vmax 0.66 m/sec - LVOT VTI 10.56 cm - LVOT peak gradient 1.75 mmHg - LVOT mean gradient 0.81 mmHg - SV LVOT 30.02 ml - MARK (continuity Vmax) 2.06 cm2 - MARK (continuity VTI) 2.63 cm2 - Ascending Ao 2.62 cm - Tricuspid Valve Name Value Normal Range TV E-wave Vmax 0.41 m/sec - TR Vmax 1.53 m/sec - TR peak gradient 9.32 mmHg - IVC diameter 1.12 cm (1.2 - 2.3) Pulmonic Valve/Qp:Qs Name Value Normal Range PV Vmax 0.68 m/sec - PV peak gradient 1.83 mmHg - RVOT Vmax 0.59 m/sec - RVOT VTI 9.52 cm - RVOT peak gradient 1.38 mmHg - PV acceleration time 129.4 msec - Bundy/IV: Voiding Method Indwelling Catheter IV Catheter Type [Right Triple Lumen Cath Femoral] IV Catheter Type [Left Femoral Triple Lumen Cath ] IV Catheter Type [Left INT / Saline Lock Antecubital] IV Catheter Type [Left Hand] INT / Saline Lock Active Medications - Current Medications Current Medications: Generic Name Dose Route Start Last Admin Trade Name Freq PRN Reason Stop Dose Admin Acetaminophen 650 mg 01/05/20 05:09 Tylenol PO Q4H PRN Pain MILD(1-3)/Fever >100.5/PACHECO Acetaminophen 650 mg 01/05/20 05:09 Tylenol [place] Q4H PRN Pain MILD(1-3)/Fever >100.5/PACHECO Famotidine 20 mg 01/07/20 10:00 01/07/20 11:05 Pepcid IV Not Given DAILY ROWDY Fentanyl 50 mcg 01/04/20 23:16 01/04/20 23:43 Sublimaze IV 50 mcg Q10MIN PRN Administration ANALGESIA Norepinephrine 4 mg in 250 mls @ 18.75 mls/hr 01/04/20 22:00 01/07/20 16:40 Levophed Drip 4 Mg/Ns 250 Ml IV 2 mcg/min TITR ROWDY 7.5 mls/hr Administration Protocol 5 MCG/MIN Fentanyl Citrate 2,000 mcg in 100 mls @ 4.035 mls/hr 01/04/20 23:45 01/05/20 18:23 Fentanyl Drip Premix IV 0 mcg/kg/hr TITR ROWDY 0 mls/hr Titration Protocol 1 MCG/KG/HR Lorazepam 2 mg 01/05/20 10:38 Ativan IV Q4H PRN Agitation Ondansetron HCl 4 mg 01/05/20 05:09 Zofran IV Q8H PRN Nausea And Vomiting Sodium Chloride 10 ml 01/05/20 10:00 01/07/20 16:39 Sodium Chloride Flush Syringe 10 Ml IV 10 ml BID ROWDY Administration Sodium Chloride 10 ml 01/05/20 05:09 Sodium Chloride Flush Syringe 10 Ml IV PRN PRN LINE FLUSH Nutrition/Malnutrition Assess - Dietary Evaluation Nutrition/Malnutrition Findings: Nutrition Notes Start: 01/07/20 10:57 Freq: Status: Active Protocol: Document 01/07/20 10:57 LM (Rec: 01/07/20 11:11 LM [facility]-[id number]) Nutrition Notes 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 Carlitos score of 9. Pt with facial wound. Pt on vent. Burn Absent Trauma Absent Current % PO Negligible Minimum of two criteria No physical signs of malnutrition #2 Nutrition Diagnosis Increased nutrient needs ( specify in comment below) Comments: protein Etiology wound healing As Evidenced by Signs and Symptoms pt with facial wound #1 Nutrition Diagnosis Inadequate oral intake Etiology Mechanical vent As Evidenced by Signs and Symptoms Pt NPO Is patient on ventilator? Yes Is Patient Ambulatory and/or Out of Bed No REE-([place]-St. Jeor-confined to bed) 59 Calculation Used for Recommendations [place]-St Jeor Additional Notes Protein: 97-162g (1.2-2g/kg) Fluid: 1 ml/kcal or per MD Nutrition Intervention Change Diet Order: TF when medically feasible Nutrition Support: Nepro 1.8 at 45 ml/hr Flush 200 ml q4h Kcal 1,944 Protein (gm) 87 Fluid (mL) 785 Goal #1 TF start when medically feasible Anticipated Discharge Needs: unable to determine at this time Follow-Up By: 01/09/20 Additional Comments F/U for POC
--- NOTE | 2020-01-07 19:29 | Event Note ---
Date: 01/07/20 Time of expiration 7 hrs. Patient has flatline EEG Pronounced brain by Dr. Palmer [facility]
--- NOTE | 2020-01-07 19:58 | Death Summary ---
Summary - Providers Date of service: 01/07/20 Consults: 01/05/20 05:09 Consult to Physician [CONS] Routine Comment: Consulting Provider: KRISTIN PAYNE Physician Instructions: Reason For Exam: cc 01/05/20 05:10 Consult to Physician [CONS] Routine Comment: Consulting Provider: AMILCAR BOWEN Physician Instructions: Reason For Exam: sdh 01/05/20 10:13 Consult to Physician [CONS] Routine Comment: Consulting Provider: AVA ZIEGLER Physician Instructions: Reason For Exam: cardiac arrest/positve CE 01/06/20 08:33 Consult to Physician [CONS] Routine Comment: Consulting Provider: SHEILA HATHAWAY Physician Instructions: Reason For Exam: WENDY 01/07/20 10:34 Consult to Physician [CONS] Routine Comment: Consulting Provider: TY DUNCAN Physician Instructions: Reason For Exam: SAH /Encephalopathy Attending: PEÑA TAN - summary Date of admission: 01/05/20 07:30
[2020-01-07] MEDS ORDERED: SODIUM CHLORIDE 0.9% 500 ML 500 ML ONE (20:06)
[2020-01-07] MEDS ORDERED: SODIUM CHLORIDE IRRI 1000 ML 1,000 ML IR ONE (21:08)
--- NOTE | 2020-01-07 22:44 | Event Note ---
Date: 01/07/20 Procedure Note Bronchoscopy with BAL Indication: R/o Pulmonary Infection including Covid-19 for Lifel[facility] Consent for all procedures was given to [facility] by patient's family Findings: Normal and patent airways without endobronchial lesions or obstruction; BAL obtained from the [facility] with good return; BAL fluid was clear. Complications: None Updated Lifelink s/p procedure; no family present
--- NOTE | 2020-01-07 22:49 | Event Note ---
Date: 01/07/20 Procedure Note Arterial line Indication: BP monitoring for Lifelink Consent for all Lifelink procedures given by family. Description: Both wrists and L groin prepped with Chlorhexidine. Essentially absent radial pulses noted bilaterally. Unable to find radial arteries. Pressure held on both wrists with no significant bleeding. Several attempts at L femoral arterial line were made. The artery was found but difficulty threading the wire. Procedure aborted and pressure held on L groin x 10 minutes. Pressure dressing placed. No bleeding at the time of departure from bedside. Lifelink updated after procedure.
[2020-01-07] MEDS ORDERED: DEXTROSE 50% IN WATER (25GM) 50 ML SYRINGE IV ONE (23:00)
[2020-01-07] MEDS ORDERED: INSULIN REGULAR, HUMAN 100 UNITS/1 ML IV ONE (23:00)
[2020-01-07] MEDS ORDERED: methylPREDNISolone Sod Suc 1,000 MG in SODIUM CHLORIDE 0.9% 250ML 250 ML IV ONE (23:00)
[2020-01-07 23:25] LABS: ABG Base Excess -4.1 mmol/L (-2.0-3.0); ABG HCO3 20.5 mmol/L (20.0-26.0); ABG Methemoglobin 0.5 % (0.0-1.5); ABG Oxygen Saturation 99.6 % (95.0-99.0); ABG PCO2 36.2 mm Hg; ABG PH 7.371 pH Units (7.350-7.450)
[2020-01-07 23:27] LABS: ABG PO2 564.5 mm Hg (80.0-90.0)
--- NOTE | 2020-01-07 23:53 | XRay Report ---
CHEST 1 VIEW INDICATION / CLINICAL INFORMATION: [employer]. COMPARISON: 01/04/2020 FINDINGS: SUPPORT DEVICES: Endotracheal tube HEART / MEDIASTINUM: No significant abnormality. LUNGS / PLEURA: No significant pulmonary or pleural abnormality. No pneumothorax. ADDITIONAL FINDINGS: No significant additional findings. IMPRESSION: No acute pulmonary or pleural abnormality. No change from 01/04/2020 Signer Name: Louie Rodgers MD FACR Signed: 01/07/2020 11:48 PM Workstation Name: [id number]
[2020-01-08] MEDS: PIPERACILLIN/TAZOBACTAM 3.375 3.375 GM/50 ML BAG IV SCH ×2 (00:05→06:55)
[2020-01-08] MEDS: LEVOTHYROXINE IV SCH ×2 (00:06→12:25)
[2020-01-08] MEDS: SODIUM CHLORIDE 0.9% IV SCH ×2 (00:06→12:25)
[2020-01-08 00:20] LABS: Basophils % (Auto) 0.3 % (0.0-1.8); Eosinophils # (Auto) 0.1 K/mm3 (0.0-0.4); Eosinophils % (Auto) 0.7 % (0.0-4.3); Hemoglobin 13.4 gm/dl (11.8-15.2); Lymphocytes # (Auto) 0.8 K/mm3 (1.2-5.4); Lymphocytes % (Auto) 5.3 % (13.4-35.0); Mean Corpuscular HGB Conc 33 % (32-34); Mean Corpuscular Volume 92 fl (84-94); Monocytes # (Auto) 0.7 K/mm3 (0.0-0.8); Monocytes % (Auto) 4.6 % (0.0-7.3); Platelet Count 123 K/mm3 (140-440); Red Blood Count 4.44 M/mm3 (3.65-5.03); Red Cell Distribution Width 16.1 % (13.2-15.2)
[2020-01-08 00:24] LABS: Bacteria,Urine 1+ /HPF (Negative); Bilirubin,Urine NEG (Negative); Blood,Urine MOD (Negative); Color,Urine Yellow (Yellow); Urobilinogen,Urine < 2.0 mg/dL (<2.0)
[2020-01-08 00:30] LABS: INR 1.49 (0.87-1.13)
[2020-01-08 00:31] LABS: Partial Thromboplastin Time 36.7 Sec. (24.2-36.6)
[2020-01-08 00:53] LABS: Creatine Kinase MB 6.2 ng/mL (0.0-4.0)
[2020-01-08 00:54] LABS: Alanine Aminotransferase 82 units/L (7-56); Albumin 2.9 g/dL (3.9-5); BUN/Creatinine Ratio 8; Blood Urea Nitrogen 52 mg/dL (9-20); Calcium 9.1 mg/dL (8.4-10.2); Hemolysis Index 13
[2020-01-08 00:58] LABS: Bilirubin,Direct < 0.2 mg/dL (0-0.2)
[2020-01-08 01:56] LABS: ABG HCO3 18.9 mmol/L (20.0-26.0); ABG Methemoglobin 0.5 % (0.0-1.5); ABG Oxygen Saturation 98.2 % (95.0-99.0); ABG PCO2 39.4 mm Hg; ABG PH 7.299 pH Units (7.350-7.450); ABG PO2 125.3 mm Hg (80.0-90.0)
[2020-01-08] MEDS ORDERED: DEXTROSE 5% IN WATER 1,000 ML IV SCH (03:00)
[2020-01-08] MEDS ORDERED: SODIUM BICARB 8.4% 50 MEQ/50 ML SYRINGE IV ONE (04:35)
[2020-01-08] MEDS ORDERED: methylPREDNISolone Sod Suc 1,000 MG in SODIUM CHLORIDE 0.9% 100 ML IV SCH (09:00)
[2020-01-08 10:29] LABS: ABG Base Excess -3.6 mmol/L (-2.0-3.0); ABG HCO3 22.2 mmol/L (20.0-26.0); ABG Methemoglobin 0.6 % (0.0-1.5); ABG Oxygen Saturation 97.4 % (95.0-99.0); ABG PCO2 43.2 mm Hg; ABG PH 7.329 pH Units (7.350-7.450); ABG PO2 103.4 mm Hg (80.0-90.0)
[2020-01-08] MEDS: FAMOTIDINE 20 MG/2 ML INJ IV SCH (10:35)
--- NOTE | 2020-01-08 10:37 | Consultation ---
History of Present Illness - Reason for Consult Consult date: 01/08/20 - History of Present Illness given the dx and sequential exams as well as EEG, the condition is non recoverable and consider him candidate for lifelink service based on non recoverable neuro / cardiac condition Medications and Allergies Allergies Allergy/AdvReac Type Severity Reaction Status Date / Time No Known Allergies Allergy Verified 01/04/20 21:59 Home Medications Medication Instructions Recorded Confirmed Last Taken Type Unobtainable 01/05/20 01/05/20 Unknown History Active Meds: Active Medications Acetaminophen (Tylenol) 650 mg PO Q4H PRN PRN Reason: Pain MILD(1-3)/Fever >100.5/PACHECO Acetaminophen (Tylenol) 650 mg HI Q4H PRN PRN Reason: Pain MILD(1-3)/Fever >100.5/PACHECO Famotidine (Pepcid) 20 mg IV DAILY ROWDY Last Admin: 01/08/20 10:35 Dose: Not Given Documented by: Fentanyl (Sublimaze) 50 mcg IV Q10MIN PRN PRN Reason: ANALGESIA Last Admin: 01/04/20 23:43 Dose: 50 mcg Documented by: Norepinephrine (Levophed Drip 4 Mg/Ns 250 Ml) 4 mg in 250 mls @ 18.75 mls/hr IV TITR ROWDY; Protocol Last Titration: 01/08/20 05:08 Dose: 2 mcg/min, 7.5 mls/hr Documented by: Fentanyl Citrate (Fentanyl Drip Premix) 2,000 mcg in 100 mls @ 4.035 mls/hr IV TITR ROWDY; Protocol Last Titration: 01/05/20 18:23 Dose: 0 mcg/kg/hr, 0 mls/hr Documented by: Piperacillin Sod/Tazobactam Sod (Zosyn/Ns 3.375gm/50ml) 3.375 gm in 50 mls @ 100 mls/hr IV Q8HR ROWDY; Protocol Last Admin: 01/08/20 06:55 Dose: 100 mls/hr Documented by: Levothyroxine Sodium 200 mcg/ (Sodium Chloride) 500 mls @ 25 mls/hr IV DIRECT ROWDY Last Infusion: 01/08/20 02:09 Dose: 100 mls/hr Documented by: Dextrose (D5w) 1,000 mls @ 50 mls/hr IV DIRECT ROWDY Last Admin: 01/08/20 02:30 Dose: 50 mls/hr Documented by: Methylprednisolone Sodium Succinate 1,000 mg/ Sodium Chloride 100 mls @ 200 mls/hr IV Q8HR [facility] Stop: 01/10/20 08:59 Last Admin: 01/08/20 10:12 Dose: 200 mls/hr Documented by: Lorazepam (Ativan) 2 mg IV Q4H PRN PRN Reason: Agitation Ondansetron HCl (Zofran) 4 mg IV Q8H PRN PRN Reason: Nausea And Vomiting Sodium Chloride (Sodium Chloride Flush Syringe 10 Ml) 10 ml IV BID [facility] Last Admin: 01/08/20 00:07 Dose: 10 ml Documented by: Sodium Chloride (Sodium Chloride Flush Syringe 10 Ml) 10 ml IV PRN PRN PRN Reason: LINE FLUSH Exam - Constitutional Vitals: Temp Pulse Resp BP Pulse Ox 97.3 F L 115 H 18 141/94 99 01/08/20 08:00 01/08/20 10:00 01/08/20 10:00 01/08/20 10:00 01/08/20 10:00 Results - Labs CBC & Chem 7: 01/07/20 23:46 01/07/20 23:46 Labs: Abnormal lab results 01/07/20 01/07/20 01/07/20 Range/Units 20:16 23:15 23:46 WBC 15.3 H (4.5-11.0) K/mm3 RDW 16.1 H (13.2-15.2) % Plt Count 123 L (140-440) K/mm3 Lymph % (Auto) 5.3 L (13.4-35.0) % Lymph # 0.8 L (1.2-5.4) K/mm3 Seg Neutrophils % 89.1 H (40.0-70.0) % Seg Neutrophils # 13.7 H (1.8-7.7) K/mm3 PT 18.3 H (12.2-14.9) Sec. INR 1.49 H (0.87-1.13) APTT 36.7 H (24.2-36.6) Sec. ABG pH (7.350-7.450) pH Units ABG pO2 564.5 H (80.0-90.0) mm Hg ABG HCO3 (20.0-26.0) mmol/L ABG O2 Saturation 99.6 H (95.0-99.0) % ABG Base Excess -4.1 L (-2.0-3.0) mmol/L ABG Hemoglobin 13.1 L (14.0-18.0) gm/dl Sodium (137-145) mmol/L Chloride (98-107) mmol/L Carbon Dioxide (22-30) mmol/L BUN (9-20) mg/dL Creatinine (0.8-1.5) mg/dL Glucose (75-100) mg/dL POC Glucose (70-105) Magnesium (1.7-2.3) mg/dL ALT (7-56) units/L Total Creatine Kinase (55-170) units/L CK-MB (CK-2) (0.0-4.0) ng/mL Troponin T (0.00-0.029) ng/mL Albumin (3.9-5) g/dL 01/07/20 01/07/20 01/08/20 Range/Units 23:46 23:46 00:37 WBC (4.5-11.0) K/mm3 RDW (13.2-15.2) % Plt Count (140-440) K/mm3 Lymph % (Auto) (13.4-35.0) % Lymph # (1.2-5.4) K/mm3 Seg Neutrophils % (40.0-70.0) % Seg Neutrophils # (1.8-7.7) K/mm3 PT (12.2-14.9) Sec. INR (0.87-1.13) APTT (24.2-36.6) Sec. ABG pH (7.350-7.450) pH Units ABG pO2 (80.0-90.0) mm Hg ABG HCO3 (20.0-26.0) mmol/L ABG O2 Saturation (95.0-99.0) % ABG Base Excess (-2.0-3.0) mmol/L ABG Hemoglobin (14.0-18.0) gm/dl Sodium 158 H (137-145) mmol/L Chloride 121.7 H (98-107) mmol/L Carbon Dioxide 21 L (22-30) mmol/L BUN 52 H (9-20) mg/dL Creatinine 6.3 H (0.8-1.5) mg/dL Glucose 117 H (75-100) mg/dL POC Glucose 175 H (70-105) Magnesium 2.60 H (1.7-2.3) mg/dL ALT 82 H (7-56) units/L Total Creatine Kinase 456 H (55-170) units/L CK-MB (CK-2) 6.2 H (0.0-4.0) ng/mL Troponin T 1.040 H* D (0.00-0.029) ng/mL Albumin 2.9 L (3.9-5) g/dL 01/08/20 01/08/20 Range/Units 01:34 10:20 WBC (4.5-11.0) K/mm3 RDW (13.2-15.2) % Plt Count (140-440) K/mm3 Lymph % (Auto) (13.4-35.0) % Lymph # (1.2-5.4) K/mm3 Seg Neutrophils % (40.0-70.0) % Seg Neutrophils # (1.8-7.7) K/mm3 PT (12.2-14.9) Sec. INR (0.87-1.13) APTT (24.2-36.6) Sec. ABG pH 7.299 L 7.329 L (7.350-7.450) pH Units ABG pO2 125.3 H 103.4 H (80.0-90.0) mm Hg ABG HCO3 18.9 L (20.0-26.0) mmol/L ABG O2 Saturation (95.0-99.0) % ABG Base Excess -7.0 L -3.6 L (-2.0-3.0) mmol/L ABG Hemoglobin 13.0 L 12.9 L (14.0-18.0) gm/dl Sodium (137-145) mmol/L Chloride (98-107) mmol/L Carbon Dioxide (22-30) mmol/L BUN (9-20) mg/dL Creatinine (0.8-1.5) mg/dL Glucose (75-100) mg/dL POC Glucose (70-105) Magnesium (1.7-2.3) mg/dL ALT (7-56) units/L Total Creatine Kinase (55-170) units/L CK-MB (CK-2) (0.0-4.0) ng/mL Troponin T (0.00-0.029) ng/mL Albumin (3.9-5) g/dL
[2020-01-08 11:17] LABS: ABG Base Excess -3.6 mmol/L (-2.0-3.0); ABG HCO3 22.5 mmol/L (20.0-26.0); ABG Methemoglobin 0.7 % (0.0-1.5); ABG Oxygen Saturation 99.6 % (95.0-99.0); ABG PCO2 44.5 mm Hg; ABG PH 7.322 pH Units (7.350-7.450)
[2020-01-08 11:22] VITALS: BP 137/92
[2020-01-08 13:14] LABS: Amorphous Crystals,Urine Few; Bilirubin,Urine NEG (Negative); Blood,Urine MOD (Negative); Color,Urine Yellow (Yellow); Urobilinogen,Urine < 2.0 mg/dL (<2.0)
[2020-01-08 13:15] LABS: Hemoglobin 12.6 gm/dl (11.8-15.2); Mean Corpuscular HGB Conc 33 % (32-34); Mean Corpuscular Volume 92 fl (84-94); Platelet Count 123 K/mm3 (140-440); Red Blood Count 4.14 M/mm3 (3.65-5.03); Red Cell Distribution Width 16.1 % (13.2-15.2)
[2020-01-08 13:25] LABS: INR 1.65 (0.87-1.13)
[2020-01-08 13:27] LABS: Partial Thromboplastin Time 35.8 Sec. (24.2-36.6)
[2020-01-08 13:33] LABS: Creatine Kinase MB 3.9 ng/mL (0.0-4.0)
[2020-01-08 13:34] LABS: Albumin 2.9 g/dL (3.9-5); Bilirubin,Direct 0.2 mg/dL (0-0.2); Calcium 8.7 mg/dL (8.4-10.2)
[2020-01-08 13:36] LABS: Creatine Kinase MB 4.1 ng/mL (0.0-4.0)
[2020-01-08 13:40] LABS: Albumin 2.9 g/dL (3.9-5); Bilirubin,Direct 0.2 mg/dL (0-0.2); Calcium 8.6 mg/dL (8.4-10.2)
== END 2020-01-08 17:47 | DRG 208 ==
LOC: ED 20:35 → CC1 01-05 07:30
PROC: 0BH17EZ Insertion of Endotracheal Airway into Trachea, Via Natural or Artificial Opening (ICD-10-PCS; principal; 2020-01-04)
PROC: 5A1945Z Respiratory Ventilation, 24-96 Consecutive Hours (ICD-10-PCS; 2020-01-04)
PROC: 4A033R1 Measurement of Arterial Saturation, Peripheral, Percutaneous Approach (ICD-10-PCS; 2020-01-04)
DX: J96.01 Acute respiratory failure with hypoxia (principal); I60.9 Nontraumatic subarachnoid hemorrhage, unspecified; I21.4 Non-ST elevation (NSTEMI) myocardial infarction; N17.0 Acute kidney failure with tubular necrosis; G93.41 Metabolic encephalopathy; E87.0 Hyperosmolality and hypernatremia; M62.82 Rhabdomyolysis; G93.1 Anoxic brain damage, not elsewhere classified; N39.0 Urinary tract infection, site not specified; I95.9 Hypotension, unspecified; D69.6 Thrombocytopenia, unspecified; F19.10 Other psychoactive substance abuse, uncomplicated; I46.9 Cardiac arrest, cause unspecified; E88.09 Other disorders of plasma-protein metabolism, not elsewhere classified; D72.829 Elevated white blood cell count, unspecified; Z79.899 Other long term (current) drug therapy
CPT/HCPCS: 36415; 36600; 70450; 71045; 71275; 72125; 74177; 80048; 80053; 80061; 80307; 80320; 81001; 82140; 82150; 82247; 82248; 82550; 82553; 82803; 82962; 83036; 83690; 83735; 83880; 84100; 84484; 85025; 85027; 85379; 85610; 85730; 86900; 86901; 87040; 87070; 87086; 87205; 93005; 93010; 93306; 94002; 94003; 95819; G0378; G0480; J1815; J2543; J2930; J3010; J3370; J7030; J7040; J7050; J7070; Q9967